=== PATIENT | female | born 2000 | race Two or more races ===

== ENCOUNTER 2021-12-07 22:20 | Emergency (ER) | payer MEDICAID, SELFPAY ==
[2021-12-07 22:29] VITALS: BP 118/70; PULSE 120; O2SAT 100
[2021-12-07 23:24] VITALS: BP 145/114; PULSE 78; RESP 20; TEMP 36.7; O2SAT 98; BMI 30.8
== END 2021-12-08 01:49 | disposition left against medical advice (07) ==
LOC: HO.ED 12-08 01:40
PROVIDERS: Emergency Provider Emergency Medicine
DX: R07.9 Chest pain, unspecified (principal); R10.9 Unspecified abdominal pain; Z98.51 Tubal ligation status
CPT/HCPCS: 99281

== ENCOUNTER 2022-03-23 15:23 | Emergency (ER) | payer MEDICAID, SELFPAY ==
[2022-03-23 15:42] VITALS: PULSE 103; RESP 16; O2SAT 97; BMI 23.0
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
--- NOTE | 2022-03-26 14:57 | MHC.CARE ---
Left voicemail for patient, we are aware that she left the ED prior to meeting with a clinician. Gave number for [facility] if she is in the community and in crisis as well as the CARE Team information if she would like information about treatment options or outpatient referrals.
== END 2022-03-23 16:18 | disposition left against medical advice (07) ==
PROVIDERS: Emergency Provider Emergency Medicine Emergency Medical Services
DX: F43.0 Acute stress reaction (principal); Z79.899 Other long term (current) drug therapy
CPT/HCPCS: 99282; 99283

== ENCOUNTER 2023-09-30 09:52 | Emergency (ER) | payer MEDICAID, OTHER, SELFPAY ==
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
[2023-09-30] MEDS: OLANZapine 10 MG VIAL 5 MG IM (10:30)
[2023-09-30] MEDS: diphenhydrAMINE HCL 50 MG/ML VIAL IM (10:30)
[2023-09-30] MEDS: LORazepam 2 MG/ML VIAL IM (10:30)
[2023-09-30 11:22] VITALS: RESP 18; BMI 24.6
--- NOTE | 2023-09-30 14:03 | PC.NURSE ---
provider asked this bond underwriter to wake patient to ask to obtain labs, t/w attempted asked times 2 patient grunted, letting a few minutes elapse before reattempt.
--- NOTE | 2023-09-30 15:35 | PC.NURSE ---
clients social science instructor from [facility] alexandra called and wanted an update t/w informed SW client was asleep and disposition couldnt be obtained as yet, advised to return phone call later.
--- NOTE | 2023-09-30 16:20 | PC.NURSE ---
made another attempt to wake client for meds, asked times two, client did move legs, unclear if client is selectively pretending to be asleep
--- NOTE | 2023-09-30 16:57 | PC.NURSE ---
late entry: supplement to restraint documentation, patient after being brought into pod was handcuffed to stretcher, provider came in and laid eye on patient and thereafter requested we attempt to let patient calm self without im medication. client was demanding phone i have the right to film what youre doing (security had handed phone to this insurance underwriter) patient remained agitated and focused on staff at nursing desk. patient threatened pod staff you cant stay here all the time, when you get out on the streets im coming back for you attempted to give client ten minutes to modify her behavior. 1005 got off stretcher. 1015 t/w began to draw up medications for IM's t/w came up to security and informed them i was presenting client with the option to take meds willingly. client stated that youre triggering my trauma and t/w suggested she hold security's hands while t/w administered. patient could not agree to take medications willingly, soon thereafter client received olanzapine, benadryl and ativan IM (VL)
[2023-09-30 19:47] LABS: MANUAL DIFF FLAG NO
[2023-09-30 19:55] LABS: Basophils Absolute Auto 0.1 X10*3/uL (0.0-0.2); Basophils Percent Auto 0.8 % (0-2); Eosinophils Absolute Auto 0.1 X10*3/uL (0.0-0.4); Eosinophils Percent Auto 1.1 % (0-4); Hematocrit 45.5 % (37.0-47.0); Hemoglobin 15.4 g/dl (12.0-16.0); Imm Gran Abs Auto 0.03 X10*3/uL (0.00-0.03); Imm Gran Pct Auto 0.2 % (0.0-0.4); Lymphocytes Absolute Auto 4.7 X10*3/uL (1.2-4.9); Lymphocytes Percent Auto 38.4 % (20-40); Mean Corpuscular HGB Conc 33.8 g/dl (31.0-35.0); Mean Corpuscular Hemoglobin 27.6 pg (27.0-33.0); Mean Corpuscular Volume 81.7 fL (80.0-98.0); Mean Platelet Volume 12.3 fL (9.4-12.3); Monocytes Absolute Auto 0.7 X10*3/uL (0.1-1.2); Monocytes Percent Auto 5.8 % (2-11); Neutrophils Absolute Auto 6.5 x10*3/uL (2.0-8.3); Neutrophils Percent Auto 53.7 % (45-73); Platelet Count 189 X10*3/uL (160-400); Red Blood Count 5.57 X10*6/uL (4.20-5.50); Red Cell Distribution Width 12.5 % (11.0-16.0); White Blood Count 12.1 X10*3/uL (4.8-10.8)
[2023-09-30 19:56] LABS: Amphetamine Screen Urine Not Detected (Not Detect); Barbiturates, Urine Not Detected (Not Detect); Benzodiazepines Screen Urine Not Detected (Not Detect); Cannabinoid Screen Urine POSITIVE (Not Detect); Cocaine Screen Urine Not Detected (Not Detect); Fentanyl, urine Not Detected (Not Detect); Opiate Screen Urine Not Detected (Not Detect); Phencyclidine Screen Urine Not Detected (Not Detect)
[2023-09-30 20:12] LABS: Alanine Aminotransferase 12 U/L (0-31); Albumin Level 4.9 g/dL (3.5-5.0); Alkaline Phosphatase 61 U/L (39-117); Anion Gap 22 (12-20); Aspartate Amino Transferase 37 U/L (5-31); Bilirubin Total 0.6 mg/dL (0.0-1.0); Blood Urea Nitrogen 8 mg/dL (9-16); Calcium 10.4 mg/dL (8.4-10.2); Carbon Dioxide 15 mmol/L (22-29); Chloride 107 mmol/L (96-108); Creatinine Clr Calc Pharmacy 92.7; Estimated Glomerular Filt Rate > 60; Ethanol < 10 mg/dL; Glucose Random 96 mg/dL (60-115); HCG Quantitative < 2 mIU/mL; Potassium 4.3 mmol/L (3.3-5.1); Sodium 140 mmol/L (135-145); Total Protein 8.8 g/dL (6.5-8.0)
[2023-09-30] MEDS: OLANZapine 10 MG TABLET 15 MG PO (22:53)
[2023-09-30] MEDS: LORazepam 1 MG TABLET 2 MG PO (22:53)
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
[2023-10-01 06:13] VITALS: RESP 16
--- NOTE | 2023-10-01 07:04 | PC.NURSE ---
Resumed care of patient, she is currently sleeping at this time. Reported to have a good night night by night nurse after PO medication given. Awaiting dispo plan at this time. 15 minute checks maintained.
--- NOTE | 2023-10-01 11:16 | MHC.CARE ---
CARE Team received a call from Pts DCF/CHD worker Becka Wilson [phone] looking for an update. She reports Pt historically has explosive episodes and difficultly self regulating under distress. She report all of Pts children were removed in an emergency response yesterday and placed in foster care. She reported Pt had making passive SI statements recently. Pt has services through [facility]. She requested to be update with plan of care.
--- NOTE | 2023-10-01 14:57 | MHC.CARE ---
CARE Team follows up with pt this afternoon. Pt appears calm and cooperative at this time, asking for discharge. She denies SI/HI and states that she wants to d/c to work with her N providers and with DCF on being reunified with her kids. She is future oriented, and declines referral to [facility]. She reports that if she experiences SI she will reach out to her therapist. She has medications at home and plans on taking them as prescribed. She declined referral to PHP last night, and is not open to discussing treatment options today. CARE Team to call DCF worker and notify them of d/c. Plan discussed with Dr. Hernandez, ED provider.
--- NOTE | 2023-10-01 15:35 | PC.NURSE ---
discharged by previous RN bartolome on arrival to unit. pt left oriented denying SI/HI with all belongings confirmed on belongings check by staff. no resp distress. +CMS. walking well out with security to waiting room.
== END 2023-10-01 15:52 | disposition home or self-care (01) ==
PROVIDERS: Student in an Organized Health Care Education/Training Program; Emergency Provider Internal Medicine
DX: R45.851 Suicidal ideations (principal); R45.6 Violent behavior; Z63.8 Other specified problems related to primary support group; Z79.899 Other long term (current) drug therapy
CPT/HCPCS: 36415; 80053; 80307; 84702; 85025; 96372; 99284; 99285; J1200; J2060; J2359; S9485

== ENCOUNTER 2023-10-21 10:26 | Outpatient (REF) | payer MEDICAID, SELFPAY ==
[2023-10-21 11:15] LABS: MANUAL DIFF FLAG NO
[2023-10-21 11:45] LABS: Basophils Absolute Auto 0.1 X10*3/uL (0.0-0.2); Basophils Percent Auto 1.4 % (0-2); Eosinophils Absolute Auto 0.1 X10*3/uL (0.0-0.4); Eosinophils Percent Auto 2.1 % (0-4); Hematocrit 43.3 % (37.0-47.0); Hemoglobin 14.3 g/dl (12.0-16.0); Imm Gran Abs Auto 0.01 X10*3/uL (0.00-0.03); Imm Gran Pct Auto 0.2 % (0.0-0.4); Lymphocytes Absolute Auto 2.2 X10*3/uL (1.2-4.9); Lymphocytes Percent Auto 35.6 % (20-40); Mean Corpuscular Hemoglobin 27.4 pg (27.0-33.0); Mean Platelet Volume 12.5 fL (9.4-12.3); Monocytes Absolute Auto 0.4 X10*3/uL (0.1-1.2); Monocytes Percent Auto 6.4 % (2-11); Neutrophils Absolute Auto 3.4 x10*3/uL (2.0-8.3); Neutrophils Percent Auto 54.3 % (45-73); Platelet Count 187 X10*3/uL (160-400); Red Blood Count 5.22 X10*6/uL (4.20-5.50); Red Cell Distribution Width 12.7 % (11.0-16.0); White Blood Count 6.3 X10*3/uL (4.8-10.8)
[2023-10-21 12:19] LABS: Alanine Aminotransferase 7 U/L (0-31); Albumin Level 4.6 g/dL (3.5-5.0); Alkaline Phosphatase 59 U/L (39-117); Anion Gap 11 (12-20); Aspartate Amino Transferase 14 U/L (5-31); Bilirubin Total 0.5 mg/dL (0.0-1.0); Blood Urea Nitrogen 7 mg/dL (9-16); Calcium 10.1 mg/dL (8.4-10.2); Carbon Dioxide 24 mmol/L (22-29); Chloride 107 mmol/L (96-108); Estimated Glomerular Filt Rate > 60; Glucose Random 90 mg/dL (60-115); Potassium 4.2 mmol/L (3.3-5.1); Sodium 138 mmol/L (135-145); TSH reflex Free T4 1.31 uIU/mL (0.32-4.0); Total Protein 7.9 g/dL (6.5-8.0)
[2023-10-23 04:44] LABS: Prolactin Undiluted 3.5 ng/mL
== END 2023-10-21 10:27 | disposition home or self-care (01) ==
LOC: HO.HHCL 10:26
PROVIDERS: Visit Provider Family Medicine
DX: N64.3 Galactorrhea not associated with childbirth (principal); N92.6 Irregular menstruation, unspecified
CPT/HCPCS: 36415; 80053; 84146; 84443; 85025

== ENCOUNTER → 2024-06-22 13:00 | Outpatient (BNV) | payer MEDICAID, SELFPAY | PROVIDERS: PCP Internal Medicine Geriatric Medicine; Visit Provider Radiology Diagnostic Radiology | DX: N64.4 Mastodynia (principal) | CPT/HCPCS: 76642 ==

== ENCOUNTER 2024-06-22 14:04 | Outpatient (REF) | payer MEDICAID, SELFPAY ==
--- NOTE | ~2024-06-22 | US_ITS ---
EXAMINATION: US DIAGNOSTIC ULTRASOUND BREAST, BILATERAL CLINICAL INFORMATION: 23-year-old female, bilateral all over breast pain x years; left greenish nipple discharge, sometimes bloody , x years. COMPARISON: None available. TECHNIQUE: Ultrasound of both breasts was performed with real-time epstein scale imaging and color Doppler. Attention was given to all 4 quadrants of both breasts, and the left retroareolar region. FINDINGS: There is no focal suspicious finding. There is no solid mass, cystic abnormality, architectural abnormality, duct ectasia, or edema in the soft tissue planes. There is no correlate to bilateral breast pain, or correlate in the left retroareolar region to explain episodic discharge. Recommend clinical management. Results are discussed with the patient at time of visit. US/US breast BI limited mamm only IMPRESSION: No findings identified in either breast suspicious for malignancy. No sonographic correlate to years of bilateral all over breast pain, and no correlate to years of the left nipple discharge. Recommend clinical management and follow-up. ASSESSMENT: BI-RADS 1: Negative RECOMMENDATION: 1. Patient should be managed based on the clinical impression.
== END 2024-06-22 14:05 | disposition home or self-care (01) ==
LOC: HO.MAMMO 14:04
PROVIDERS: PCP Internal Medicine Geriatric Medicine; Visit Provider Internal Medicine Geriatric Medicine
DX: N64.4 Mastodynia (principal); N64.52 Nipple discharge
CPT/HCPCS: 76642

== ENCOUNTER 2024-09-07 18:54 | Outpatient (REF) | payer MEDICAID, SELFPAY | END 2024-09-07 18:55 | disposition home or self-care (01) | LOC: HO.HHCLNP 18:54 | PROVIDERS: Visit Provider Internal Medicine | DX: J02.9 Acute pharyngitis, unspecified (principal) | CPT/HCPCS: 87070 ==

== ENCOUNTER 2025-02-26 13:11 | Outpatient (REF) | payer MEDICAID, SELFPAY ==
--- NOTE | ~2025-02-26 | XR_ITS ---
EXAMINATION: XR CHEST 2 VIEWS HISTORY: persistent cough and blood tinged sputum post Covid COMPARISON: There are no prior studies for comparison. FINDINGS: PA and lateral views of the chest are submitted. The lungs are expanded and clear. There is no pleural effusion, pneumothorax, or pulmonary vascular congestion. The heart is normal in size. The bones are intact. XR/XR chest 2V IMPRESSION: Normal examination of the chest. Electronically signed by: Kirby Miles MD 02/26/2025 02:03 PM EDT
[2025-02-26 16:37] LABS: Hematocrit 44.3 % (37.0-47.0); Hemoglobin 14.6 g/dl (12.0-16.0); Mean Corpuscular Hemoglobin 28.1 pg (27.0-33.0); Mean Corpuscular Volume 85.4 fL (80.0-98.0); Mean Platelet Volume 12.8 fL (9.4-12.3); Platelet Count 170 X10*3/uL (160-400); Red Blood Count 5.19 X10*6/uL (4.20-5.50); Red Cell Distribution Width 12.6 % (11.0-16.0); White Blood Count 6.2 X10*3/uL (4.8-10.8)
[2025-02-26 17:50] LABS: Alanine Aminotransferase 12 U/L (0-31); Albumin Level 4.7 g/dL (3.5-5.0); Alkaline Phosphatase 51 U/L (39-117); Anion Gap 10 (12-20); Aspartate Amino Transferase 18 U/L (5-31); Bilirubin Total 0.6 mg/dL (0.0-1.0); Blood Urea Nitrogen 9 mg/dL (9-16); Calcium 9.9 mg/dL (8.4-10.2); Carbon Dioxide 28 mmol/L (22-29); Chloride 107 mmol/L (96-108); Estimated Glomerular Filt Rate > 60; HCG Quantitative < 2 mIU/mL; Potassium 3.9 mmol/L (3.3-5.1); Sodium 141 mmol/L (135-145); Total Protein 7.8 g/dL (6.5-8.0)
[2025-02-26 18:11] LABS: Glucose Random 57 mg/dL (60-115)
[2025-02-27 03:52] LABS: HBS Num1 84.54 mIU/mL (0-7.99); HBsAGNum1 0.35 S/CO (0.00-0.99); HIV AB/AG Nonreactive (Nonreactive); HIV Num 1 0.11 S/CO (0.00-0.99); Hepatitis B Surface Antigen Negative (Negative); ~HepC Num1 0.21 S/CO (0.00-0.79); ~Hepatitis B Surface Antibody REACTIVE (Nonreactive); ~Hepatitis C Antibody Nonreactive (Nonreactive)
[2025-02-27 05:18] LABS: CT PCR NOT DETECTED (Not Detect.); NG PCR NOT DETECTED (Not Detect.)
[2025-03-01 19:29] LABS: TS Negative Control Passed; TS Panel A 0; TS Panel B 0; TS Positive Control Passed; TSpotTB Negative (Negative)
== END 2025-02-26 13:12 | disposition home or self-care (01) ==
LOC: HO.HHCL 13:11
PROVIDERS: Visit Provider Nurse Practitioner Family
DX: Z00.00 Encounter for general adult medical examination without abnormal findings (principal); R05.1 Acute cough; R11.2 Nausea with vomiting, unspecified
CPT/HCPCS: 71046; 80053; 84702; 85027; 86481; 86706; 86803; 87340; 87389; 87491; 87591

== ENCOUNTER → 2025-02-26 13:38 | Outpatient (BNV) | payer MEDICAID, SELFPAY | PROVIDERS: Visit Provider Radiology Diagnostic Radiology | DX: R05.9 Cough, unspecified (principal) | CPT/HCPCS: 71046 ==

== ENCOUNTER 2025-07-20 17:51 | Emergency (ER) | payer MEDICAID, SELFPAY ==
--- NOTE | ~2025-07-20 | XR_ITS ---
CLINICAL HISTORY: lac to left thumb ?retained glass 3 view left 1st digit Comparison: None Findings: Soft tissue swelling of the 1st digit noted. No displaced fracture or dislocation of the 1st digit. No retained metallic foreign body. Multiple foreign bodies vein of the dens or radiopaque. IMPRESSION: 1. No acute fracture or dislocation. 2. No dense or metallic foreign body by radiographs This document has been electronically signed by: Owen Ortega MD on 07/20/2025 19:31:18
--- NOTE | 2025-07-20 18:21 | ED.GENADULT ---
HPI - General Adult General Chief complaint: Wound/Laceration Stated complaint: glass in L hand, bleeding Time Seen by Provider: 07/20/25 23:01 History of Present Illness ED Provider: Palmer BYERS narrative: The patient is a 24-year-old female who accidentally injured herself when she was throwing away some broken glass. She sustained a laceration to the dorsum of her left thumb. She says that she has been washing dishes when she accidentally broke a glass. She was then trying to throughout the broken pieces of glass when she accidentally cut herself with a broken glass on the dorsum of the thumb. She does not know when she last had a tetanus shot. Related Data Home Medications ?Medication ?Instructions ?Recorded ?Confirmed clonidine HCl 0.1 mg tablet 0.1 mg PO BID 09/30/23 09/30/23 olanzapine 15 mg tablet 15 mg PO BEDTIME 09/30/23 09/30/23 oxcarbazepine 300 mg tablet 300 mg PO BID 09/30/23 09/30/23 Previous Rx's ?Medication ?Instructions ?Recorded cephalexin 500 mg capsule 500 mg PO TID 2 days #6 caps 07/20/25 Allergies Allergy/AdvReac Type Severity Reaction Status Date / Time No Known Allergies (No Known Allergy Verified 07/20/25 18:23 Allergies*) Review of Systems Review of Systems: Yes all other systems are reviewed and are negative [facility] Social History Social History Advance Directives: No Advance Directives Information Provided: No Do you have a plan to hurt others: No Plan Physical Exam ED Vital Signs: Vital Signs - 24 hr 07/20/25 18:22 07/20/25 22:56 07/20/25 23:59 Temperature 98 F 98.3 F 98.3 F Pulse Rate 69 70 70 Respiratory Rate 18 20 20 Blood Pressure 111/66 105/61 105/61 Pulse Oximetry 98 100 100 Oxygen Delivery Method Room Air Room Air Room Air BMI result Body Mass Index 24.3 Const Other: The patient is awake, alert, pleasant, cooperative. She does not appear in acute distress. HENMT Other: The face is symmetrical. ?Mucous membranes moist. Eyes General: appearance normal, both eyes and all related structures Neck Neck: Yes normal visual inspection and Yes full ROM Resp Effort & Inspection: normal respiratory effort Skin Other: The patient has a 1.5 cm laceration to the skin on the dorsum of the left thumb near the creases of the IP joint. Skin edges are quite sharp. Neuro Other: The patient is awake and alert with a normal mental status. She has normal sensation of the distal left thumb. Extrem Other: The patient has a laceration to the skin of the dorsum of the left thumb in the region of the creases of the IP joint. There was no soft tissue swelling. She has a normal function of the joint of the left thumb and can fully extend the left thumb. Thumb is neurovascularly intact with intact tendon function. Course Course Course Narrative: This is a Rapid Medical Examination (RME) performed by Leigha Chandler PA-C in triage. Full HPI, ROS, assessment and treatment plan per primary provider in the Main ED. 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 believes there is still glass in the lac. tdap not UTD. Plan: lac repair, XR Medications Administered Discontinued Medications Generic Name Dose Route Start Last Admin Trade Name Ce PRN Reason Stop Dose Admin Bacitracin 1 appl 07/20/25 23:37 07/20/25 23:50 Bacitracin Oint 0.9 Gm Packet TOPICAL 07/20/25 23:38 1 appl ONCE ONE Administration Protocol Cephalexin HCl 1,000 mg 07/20/25 23:37 07/20/25 23:50 Cephalexin 500 Mg Capsule PO 07/20/25 23:38 1,000 mg ONCE ONE Administration Diphtheria/Tetanus/Acell Pertussis 0.5 ml 07/20/25 23:05 07/20/25 23:14 Diphth,Pertus(Acell),Tet Adult 0.5 Ml Syringe IM 07/20/25 23:06 0.5 ml .ONCE ONE Administration Procedures Laceration Laceration 1: Site: hand (Dorsum of left thumb) Side (If applicable): left Size (cm): 1.5 Description: linear Depth: simple, single layer Local Anesthetic: lidocaine 1% Amount of anesthesia used (mL): 3 Pre-repair: wound explored and irrigated extensively Skin layer closed with: nylon Size (cm): 4-0 Number of sutures: 2 Technique: simple, interrupted Medical Decision Making Medical Decision Making MDM Narrative: The patient is a 24-year-old female who is generally in good health who has a laceration to the dorsum of the left thumb in the region of the IP joint of the thumb. This was caused by glass. An x-ray shows no definite radiopaque foreign body. The wound is near the IP joint of the thumb but I think it is primarily located just proximal to the IP joint dorsally. The wound was anesthetized with lidocaine and explored after applying a finger tourniquet to the thumb to attempt to achieve a bloodless field. The laceration is not very long and it was difficult to open the wound significantly for good visualization but I was not able to visualize any foreign matter in the wound and I did not palpate any foreign matter with forceps on exploration. My overall impression was that the wound did not have any foreign matter in it. Additionally I did not feel that the wound was likely violating the joint capsule of the IP joint. The wound was copiously irrigated with normal saline. The wound was closed with 2 simple interrupted stitches using 4-0 nylon. Good wound edge approximation was achieved. The patient tolerated the procedure well. The patient was updated on her tetanus. I explained to the patient that I had not found any foreign material in the wound. I also explained that I has been concerned that the wound is near the joint capsule of the IP joint of the thumb but my suspicion for a joint capsule violation is low. The patient was started on prophylactic course of cephalexin. Stitches should be removed in 10 days. If she develops any concern about infection she should return to the emergency room for evaluation. She was given a work note for the next 2 days. She works as a dental respiratory assistant. Discharge Plan Discharge Clinical Impression: Laceration of left thumb Patient Disposition: Home, Self-Care Instructions: Laceration (ED) Additional Instructions: Please contact your regular doctor's office tomorrow morning to arrange a follow up appointment in approximately 10 days for suture removal. Also tomorrow morning, please grain picker your antibiotics and take the prescribed antibiotic 3 times a day for 2 days. Please also purchase [id number] bacitracin (a topical antibiotic) and apply small amount to the wound with Band-Aid changes for the 1st 3 days and also before taking a shower. After 3 days you may stop applying the topical antibiotic. I would recommend not working as a dental respiratory assistant the next 2 days to allow the wound to fully seal itself. After 2 days I think you may work as long as you were wearing gloves. If at any point you have concerns about the possibility of an infection, if you have any redness or drainage or worsening pain, please return to the emergency room for re-evaluation. Prescriptions: New cephalexin 500 mg capsule 500 mg PO TID 2 Days Qty: 6 0RF No Action clonidine HCl 0.1 mg tablet 0.1 mg PO BID oxcarbazepine 300 mg tablet 300 mg PO BID olanzapine 15 mg tablet 15 mg PO BEDTIME Referrals: Name,MD Laurent [Primary Care Provider, Internal Medicine] Stand Alone Forms: Work/School Release Interventions: ED Discharge Assessment Last Done: 07/20/25 23:59 Discharge Date/Time: 07/20/25 23:59 Print Language: Malawian
[2025-07-20 18:22] VITALS: BP 111/66; PULSE 69; RESP 18; TEMP 36.6; O2SAT 98; BMI 24.3
[2025-07-20 22:56] VITALS: BP 105/61; PULSE 70; RESP 20; TEMP 36.8; O2SAT 100
[2025-07-20] MEDS: Diphth,Pertus(ACell),Tet Adult 0.5 ML SYRINGE IM (23:14)
[2025-07-20 23:59] VITALS: BP 105/61; PULSE 70; RESP 20; TEMP 36.8; O2SAT 100
== END 2025-07-20 23:59 | disposition home or self-care (01) ==
PROVIDERS: Emergency Provider Emergency Medicine; PCP Internal Medicine Geriatric Medicine
DX: S61.012A Laceration without foreign body of left thumb without damage to nail, initial encounter (principal); W25.XXXA Contact with sharp glass, initial encounter; Y93.G1 Activity, food preparation and clean up; Y92.9 Unspecified place or not applicable; Y99.9 Unspecified external cause status; Z23 Encounter for immunization
CPT/HCPCS: 12001; 73140; 90471; 90715; 99283; 99284

== ENCOUNTER → 2025-07-20 18:23 | Outpatient (BNV) | payer MEDICAID, SELFPAY | PROVIDERS: PCP Internal Medicine Geriatric Medicine; Visit Provider Radiology Neuroradiology | DX: S61.012A Laceration without foreign body of left thumb without damage to nail, initial encounter (principal) | CPT/HCPCS: 73140 ==

== ENCOUNTER 2025-08-27 08:00 | Emergency (ER) | payer MEDICAID, SELFPAY ==
--- NOTE | ~2025-08-27 | XR_ITS ---
EXAMINATION: XR HAND 3 OR MORE VIEWS RIGHT HISTORY: r/o FB rt hand/rt middle finger COMPARISON: There are no prior studies available for comparison. FINDINGS: Three views of the right hand are submitted. Osseous mineralization is normal. There is no fracture or dislocation. The joint spaces are preserved. The soft tissues are unremarkable. No radiopaque foreign body is identified. XR/XR hand RT min 3V IMPRESSION: Unremarkable examination of the right hand. No radiopaque foreign body is identified. Electronically signed by: Kirby Miles MD 08/27/2025 08:37 AM EDT
[2025-08-27 08:11] VITALS: BP 107/57; PULSE 82; RESP 18; TEMP 36.8; O2SAT 98; BMI 23.0
--- OUTSIDE RECORDS SUMMARY | 2025-08-27 08:31 | XMS_ITS | Encounter Summary ---
Author Organization [employer] Address [address] [place] [address] [address] [place] [address] Care Team Providers Care Gritting Machine Operator Name Role Phone Name, Laurent DUPREE Primary Care Provider [phone] Reason for Visit * Reason Onset Date Comments triage 04/26/2023 Encounter Details Date Type Department Care Team ([facility] st Contact Info) Description 04/26/2023 Telephone [facility] MEDICINE [address] [place] [address] Name, MD Laurent [address] [place] [address] triage Social History Tobacco Use Types Packs/Day Years Used Date Smoking Tobacco: Never Assessed Comments Unknown Sex and Gender Information Value Date Recorded Sex Assigned at Female 10/01/2022 10:34 AM EDT Legal Sex Female 10:34 AM EDT Gender Identity Female 10/01/2022 10:34 AM EDT Sexual Orientation Straight 10/01/2022 10 :34 AM EDT documented as of this encounter Miscellaneous Notes * Telephone Encounter - Eber Warner - 04/26/2023 10:57 AM EDT Symptom: Knee Pain - Not From Injury Outcome: Schedule an urgent appointment (within 1 hour) or talk to a nurse or provider soon Reason: Severe pain now The caller accepted this outcome documented in this encounter Plan of Treatment Not on file documented as of this encounter Visit Diagnoses Not on filedocumented in this encounter Care Teams Gritting Machine Operator Relationship Specialty Start Date End Date Name, MD Laurent [address] [place] [address] PCP - General Family Medicine 10/28/18 documented as of this encounter
--- OUTSIDE RECORDS SUMMARY | 2025-08-27 08:31 | XMS_ITS | Clinical Summary ---
Author Organization [facility] Address [address] [place] [address] Care Team Providers Care Hand Hardener Name Role Phone Unavailable Primary Care Provider Unavailabl e Social History Tobacco Use Types Packs/Day Years Used Date Smoking Tobacco: Never Assessed Comments Unknown Sex and Gender Information Value Date Recorded Sex Assigned at Not on file Legal Sex Female 12:37 PM EST Gender Identity Not on file Sexual Orientation Not on file Plan of Treatment Health Maintenance Due Date Last Done Comments HPV Vaccines (1 - 3-dose series) 2013 DTaP,Tdap,and Td Vaccines (1 - Tdap) 2017 Hepatitis B Vaccines (1 of 3 - 19+ 3-dose series) 2017 Cervical Cancer Screening: P ap Smear 2019 HIV Screening 12/31/2023 Hepatitis C Screening 12/31/2023 Social Influencers of Health Screening 12/31/2023 Depression Screening 12/02/2024 COVID-19 Vaccine (2023-2 5 season) 2025 Influenza Vaccine (#1) 2025 HIB Vaccines Aged Out No longer eligi ble based on patient's age to complete this topic Hepatitis A Vaccines Aged Out No long er eligible based on patient's age to complete this topic IPV Vaccines Aged Out No longer eligi ble based on patient's age to complete this topic MMR Vaccines Aged Out No longer eligi ble based on patient's age to complete this topic Meningococcal ACWY Vaccine Aged Out N o longer eligible based on patient's age to complete this topic Meningococcal B Vaccine Aged Out No l onger eligible based on patient's age to complete this topic Pneumococcal Vaccine: Pediat rics (0 to 5 Years) and At-Risk Patients (6 to 49 Years) Aged Out No longer eligible b ased on patient's age to complete this topic RSV Immunization Patients Un chemo 20 months Aged Out No longer eligible b ased on patient's age to complete this topic Varicella Vaccines Aged Out No longer eligible based on patient's age to complete this topic
--- OUTSIDE RECORDS SUMMARY | 2025-08-27 08:31 | XMS_ITS | Clinical Summary ---
Author Organization [facility] Address [address] [facility] [address] [place] [phone] Phone Care Team Providers Care Timekeeping Supervisor Name Role Phone Pcp, Unknown Primary Care Provider Unavailabl e Allergies No known active allergies Medications No known medications Social History Tobacco Use Types Packs/Day Years Used Date Smoking Tobacco: Never Smokeless Tobacco: Never Tobacco Cessation:Counseling Given: Not Answered Alcohol Use Standard Drinks/Week Comments Not Currently 0 (1 standard drink = 0.6 oz pur e alcohol) Education Answer Date Recorded Are you interested in more education? Not on kalyn e 01/25/2025 Are you concerned about learning? Not on file 01/25/2025 No 01/25/2025 No 01/25/2025 Digital Access Answer Date Recorded No 01/25/2025 No 01/25/2025 Reliable internet access at home? Not on file 01/25/2025 Device with a working camera? Not on file Intimate Partner Violence Answer Date R ecorded Are you denied basic needs s uch as food, clothing, or medical care? No 01/25/2025 In the past 12 months have y ou been in a relationship with a person who hurts, threatens, or tries to control you? No 01/25/2025 Are you denied basic needs s uch as food, clothing, or medical care? No 01/25/2025 In the past 12 months have y ou been in a relationship with a person who hurts, threatens, or tries to control you? No 01/25/2025 Comments No Sex and Gender Information Value Date Recorded Sex Assigned at Female 01/25/2025 12:05 PM EST Legal Sex Female 11:19 AM EST Gender Identity Female 01/25/2025 12:05 PM EST Sexual Orientation Not on file Last Filed Vital Signs Vital Sign Reading Time Taken Comments Blood Pressure 116/75 01/25/2025 2:10 PM EST Pulse 92 01/25/2025 2:10 PM EST Temperature 37.2 C (99 F) 01/25/2025 2:10 PM EST Respiratory Rate 18 01/25/2025 2:10 PM EST Oxygen Saturation 97% 01/25/2025 2:10 PM EST Inhaled Oxygen Concentration - - Weight 61.5 kg (135 lb 8 oz) 01/25/2025 12:04 PM EST Height 160 cm (5' 3 ) 01/25/2025 12:04 PM EST Body Mass Index 01/25/2025 12:04 PM EST Plan of Treatment Health Maintenance Due Date Last Done Comments DEPRESSION SCREENING 2010 HPV VACCINES (1 - 3-dose series) 2013 HEPATITIS C SCREENING 2016 HIV ONE-TIME SCREENING (18-65 YEARS) 2016 PAP SMEAR 2019 INFLUENZA VACCINE (#1) 2025 COVID-19 VACCINE ( season) 2025 Adult Td,Tdap Booster 06/07/2031 06/07/2021 , 09/18/2019, 03/24/2016, Additional history exists SMOKING STATUS SCREENING (Once After 26 Yrs) Completed 01/25/2025 HEPATITIS A VACCINES Aged Out No long er eligible based on patient's age to complete this topic HIB VACCINES Aged Out No longer eligi ble based on patient's age to complete this topic MENINGOCOCCAL VACCINES (ACWY) Aged Out No longer eligible based on patient's age to complete this topic MENINGOCOCCAL VACCINES (B) Aged Out N o longer eligible based on patient's age to complete this topic PNEUMOCOCCAL VACCINES (0-49 years) Aged Out No longer eligible based on patient's age to complete this topic Medical Devices Not on file Insurance [facility] C3 ACO C3 ACO C3 ACO C3 ACO [facility] C3 ACO [facility] C3 ACO Care Teams Timekeeping Supervisor Relationship Specialty Start Date End Date Pcp, Unknown PCP - General 01/25/25 Additional Source Comments The information contained in this document represents components of the legal health record. It is not the complete legal health record.[facility]
--- OUTSIDE RECORDS SUMMARY | 2025-08-27 08:31 | XMS_ITS | Clinical Summary ---
Author Organization [facility] [address] [facility] Address [address] [place] [phone] Phone Care Team Providers Care Wellness Nurse Name Role Phone No, Pcp (Do Not Change Name) Primary Care Provid er Unavailable Medications senna-docusate (SENNA-PLUS) 8.6-50 mg tablet Take 1 tablet by mouth 2 (two) times daily.. 14 tablet 1 8 Active oxyCODONE (ROXICODONE) 5 MG Immediate Release tablet Take 1-2 every 4-6 hours as needed 60 tablet 8 Active Miscellaneous Medical Supply Misc Rolling Walker; Use as directed.Dx: left femur fracture with operative repair; 99 months 1 each 8 Active Active Problems Problem Noted Date Diagnosed Date Fracture of left femur 08/09/2018 Closed fracture of left femu r, unspecified fracture morphology, unspecified portion of femur, initial encounter 08/09/2018 Social History Tobacco Use Types Packs/Day Years Used Date Smoking Tobacco: Never Assessed Comments Unknown Sex and Gender Information Value Date Recorded Sex Assigned at Not on file Legal Sex Female 2:37 AM EDT Gender Identity Not on file Sexual Orientation Not on file Last Filed Vital Signs Vital Sign Reading Time Taken Comments Blood Pressure 115/82 08/12/2018 9:56 AM EDT Pulse 90 08/12/2018 9:56 AM EDT Temperature 37.1 C (98.8 F) 08/12/2018 9:36 AM EDT Respiratory Rate 16 08/28/2018 11:25 AM EDT Oxygen Saturation 99% 08/12/2018 9:56 AM EDT Inhaled Oxygen Concentration - - Weight 54.4 kg (120 lb) 08/28/2018 11:25 AM EDT Height 160 cm (5' 3 ) 08/28/2018 11:25 AM EDT Body Mass Index 21.26 08/28/2018 11:25 AM EDT Plan of Treatment Health Maintenance Due Date Last Done Comments MMR Vaccines (1 of 1 - Stand mikal series) 1999 DTaP/TDaP Vaccines (1 - Tdap) 2005 HIV screening 2011 Varicella Vaccines (1 of 2 - 13+ 2-dose series) 2011 HPV vaccine series (1 - 3-do se series) 2013 Hepatitis C screening 2016 Hepatitis B vaccine series ( 1 of 3 - 19+ 3-dose series) 2017 Tetanus adult (Td q 10,TDAP once) 2018 Cervical cancer screening 2019 Influenza vaccine 07/02/2025 Covid-19 vaccine series ( - season) 2025 RSV Immunization (1 - 1-dose 75+ series) 2073 HIB Vaccines Aged Out No longer eligi [...] patient's age to complete this topic Meningococcal Vaccine Aged Out No patricia breanna eligible based on patient's age to complete this topic Pneumococcal Vaccine (2 - 49 years) Aged Out No longer eligible based on patient's age to complete this topic Rotavirus Vaccines Aged Out No longer eligible based on patient's age to complete this topic Medical Devices Implanted Type Area Service Unit Operator Device Identifier Shelf Expiration Date Model / Serial / Lot Nail Fem [id number] Peggy Rtrgd - [id number] Implanted:08/02 by Brent Murdock MD at [address] (Quantity not on file) Other-im plant Left: Femur J J ([id number]) 01/29/2027 [id number] S / / [id number] Screw Melida 5x48mm F Im Nl - [id number] Implanted:08/02 by Brent Murdock MD at [address] (Quantity not on file) Other-im plant Left: Femur J J (PAOLA) [id number] / / Screw Melida 5x30mm F Im Nl - [id number] Implanted:08/02 by Brent Murdock MD at [address] (Quantity not on file) Other-im plant Left: Femur J J (PAOLA) [id number] / / Screw Melida 5x44mm F Im Nl - [id number] Implanted:08/02 by Brent Murdock MD at [address] (Quantity not on file) Other-im plant Left: Femur J J (PAOLA) 04.005.534 / / Screw Melida 5x42mm F Im Nl - [id number] Implanted:08/02 by Brent Murdock MD at [address] (Quantity not on file) Other-im plant Left: Femur J J (PAOLA) [id number] / / Insurance [id number] MEDICAID [id number] MEDICAID [id number] MEDICAID [id number] MEDICAID [id number] MEDICAID Advance Directives * Full ACLS (Latest Code Status on File) Date Activated Date Inactivated Comments 08/09/2018 9:08 AM 08/12/2018 6:28 PM Care Teams Wellness Nurse Relationship Specialty Start Date End Date No, Pcp (Do Not Change Name) PCP - General 08/28/18
--- OUTSIDE RECORDS SUMMARY | 2025-08-27 08:31 | XMS_ITS | Encounter Summary ---
Author Organization [facility] Address [address] [facility] [address] [place] [address] Care Team Providers Care Specimen Preparation Assistant Name Role Phone Name, Laurent DUPREE Primary Care Provider [phone] Reason for Visit * Reason Onset Date Comments Nurse Triage 02/28/2024 Encounter Details Date Type Department Care Team ([facility] st Contact Info) Description 02/28/2024 Telephone [facility] MEDICINE [address] [place] [address] Name, MD Laurent [address] [place] [address] Nurse Triage Social History Tobacco Use Types Packs/Day Years Used Date Smoking Tobacco: Never Passive Smoke Exposure: Never Smokeless Tobacco: Never Comments Unknown Sex and Gender Information Value Date Recorded Sex Assigned at Female 10/01/2022 10:34 AM EDT Legal Sex Female 10:34 AM EDT Gender Identity Female 10/01/2022 10:34 AM EDT Sexual Orientation Straight 10/01/2022 10 :34 AM EDT documented as of this encounter Miscellaneous Notes * Telephone Encounter - Alice Turner RN - 02/28/2024 9:57 AM EDT Triage call Pt reports two areas of concern. Pt reports chest discomfort which comes and goes, center area of chest, above left breast. Pt reports anxiety at times which makes this worse. Pt reports when able to work through anxiety the pain goes away. Pt also reports is a smoker and is spitting up brownish sputum in the mornings. No difficulty breathing, neg for cough or fever. Pt reports getting some dizziness when gets up from sitting quickly. Pt also reports a concern about right breast nipple discharge. Pt reports last seen a couple days ago but, has been occurring for more than a yearnow. Pt reports when squeezing the breast discharge appears which is yellowish -greenish, small amount. Pt is requesting to be seen by provider. Pt is working till 5pm most days. Pt is unable to [facility] today. Apt with DR. Acuña 03/03/24 @ 1130am. Pt agrees with disposition and home care reviewed. Insurance is verified as active prior to booking. Multiple (2) protocols were used on this call. Disposition for Call: See in Office or Video Visit within 3 Days Protocol Used: Chest Pain (Adult) Protocol-Based Disposition: See in Office or Video Visit Today Override (Final) Disposition: See in Office or Video Visit within 3 Days Override Reason: Other Video visit not offered Positive Triage Questions: * All other patients with chest pain (Exception: Fleeting chest pain lasting a few seconds.) * Patient wants to be seen * All higher-acuity triage questions were negative Care Advice Discussed: * Humidifier * Avoid Tobacco Smoke * Reasons To Call Back - Chest pain increases in frequency, duration or severity - Chest pain lasts over 5 minutes - Chest pains persist over 3 days - Difficulty breathing or unusual sweating occurs - Fever over 100.4 F (38.0 C) - You become worse Protocol Used: Breast Symptoms (Adult) Protocol-Based Disposition: See in Office or Video Visit within 3 Days Positive Triage Question: * Nipple discharge and bloody * All higher-acuity triage questions were negative Care Advice Discussed: * Reasons To Call Back - You feel a lump - Nipple discharge occurs - Change in appearance of breast - You have more questions - You become worse * Telephone Encounter - Demetris Perez - 02/28/2024 9:00 AM EDT Symptom: Chest Pain - Adult Outcome: Schedule an urgent appointment (within 1 hour) or talk to a nurse or provider soon Reason: Caller denied all higher acuity questions The caller accepted this outcome documented in this encounter Plan of Treatment Not on file documented as of this encounter Visit Diagnoses Not on filedocumented in this encounter Care Teams Specimen Preparation Assistant Relationship Specialty Start Date End Date Name, MD Laurent [address] [place] [address] PCP - General Family Medicine 10/28/18 documented as of this encounter
--- OUTSIDE RECORDS SUMMARY | 2025-08-27 08:31 | XMS_ITS | Encounter Summary ---
Author Organization [facility] Address [address] [facility] [address] [place] [address] Care Team Providers Care Sewage Plant Supervisor Name Role Phone Name, Laurent DUPREE Primary Care Provider [phone] Reason for Visit * Reason Comments Med Refill Encounter Details Date Type Department Care Team ([facility] st Contact Info) Description 06/10/2025 Refill [facility] MEDICINE [address] [place] [address] Lara Bourne FNP [address] [place] [address] Social History Tobacco Use Types Packs/Day Years Used Date Smoking Tobacco: Never Passive Smoke Exposure: Never Smokeless Tobacco: Never Alcohol Use Standard Drinks/Week Comments Never 0 (1 standard drink = 0.6 oz pur e alcohol) Depression Answer Date Recorded Patient Health Questionnaire-9 Score 0 02/26/2025 Patient Health Questionnaire-9 Score 0 02/26/2025 Last PHQ-9: Questionnaire Data Not on file 0 02/26/2025 Housing Stability Answer Date Recorded What is your housing situation today? I have raul steward 05/18/[address] you li ve. Do you have problems with any of the following? None of the above 05/18/2024 Food Insecurity Answer Date Recorded Within the past 12 months, y ou worried that your food would run out before you got money to buy more: Never True 05/18/2024 Within the past 12 months,th e food you bought just didn't last and you didn't have enough money to get more: Never True Transportation Answer Date Recorded In the past 12 months, has l ack of transportation kept you from medical appts, meetings, work or from getting things needed for daily living? No 05/18/2024 Utilities Answer Date Recorded In the past 12 months, has t he electric, gas, oil or water company threatened to shut off services in your home? No 05/18/2024 Depression Answer Date Recorded Patient Health Questionnaire-2 Score 0 02/26/2025 Internet Access Answer Date Recorded Internet Access Q1 Yes 08/03/2024 Internet Access Q2 Not on file 08/03/2024 Comments Unknown Sex and Gender Information Value Date Recorded Sex Assigned at Female 10/01/2022 10:34 AM EDT Legal Sex Female 10:34 AM EDT Gender Identity Female 10/01/2022 10:34 AM EDT Sexual Orientation Straight 10/01/2022 10 :34 AM EDT documented as of this encounter Plan of Treatment Not on file documented as of this encounter Visit Diagnoses Not on filedocumented in this encounter Additional Health Concerns Assessment Noted Time PHQ-9 Depression Total Score: 0 02/27/20 25 12:27 PM EDT documented as of this encounter Care Teams Sewage Plant Supervisor Relationship Specialty Start Date End Date Name, MD Laurent [address] [place] [address] PCP - General Family Medicine 10/28/18 documented as of this encounter
--- OUTSIDE RECORDS SUMMARY | 2025-08-27 08:31 | XMS_ITS | Clinical Summary ---
Author Organization [employer] Address [address] [place] [address] Care Team Providers Care Supervisor Assembly Room Name Role Phone Name, Laurent DUPREE Primary Care Provider [phone] Allergies No known active allergies Medications cloNIDine (Catapres) 0.1 MG tablet 3 Active hydrOXYzine HCl (Atarax) 10 MG tablet 3 Active OLANZapine (ZyPREXA) 10 MG tablet 3 Active LORazepam (Ativan) 0.5 MG tablet 3 Active albuterol 108 (90 Base) MCG/ACT inhaler Inhale 2 puffs every 4 (four) hours if needed for wheezing or shortness of breath. Maximum 8 puffs per day 18 g 3 5 02/27/20 26 Active omeprazole (PriLOSEC) [address] capsule TAKE 1 CAPSULE BY MOUTH EVERY DAY 90 capsule 5 Active Active Problems Problem Noted Date Diagnosed Date Non-cardiac chest pain 02/26/2025 Nausea and vomiting 02/26/2025 Healthcare maintenance 02/26/2025 Acute cough 02/26/2025 Request for sterilization 09/22/2024 History of marijuana use 09/22/2024 H/O tubal ligation 05/26/2024 Overview (05/26/2024): 2021 after last child Children are 2, 4 and 5 Bipolar affective disorder in remission 05/25/20 History of asthma 04/16/2024 History of depression 04/16/2024 Post traumatic stress disorder (PTSD) 04/16/2024 Blood type, Rh negative 04/16/2024 Seasonal allergies 04/16/2024 Chlamydial infection 12/05/2018 10/18/2023 Gonorrhea 12/05/2018 10/18/2023 Resolved Problems Problem Noted Date Diagnosed Date Resolved Date Class 1 obesity 04/16/2024 05/25/2024 Atypical chest pain 03/03/2024 05/25/20 Assessment & Plan (03/03/2024 12:39 PM EDT): EKG within normal limits. Previous labs were normal, current chest pain may be triggered by underlying URI + anxiety. Counseled to use Tylenol 2-3 times per day x5 days. Counseled to follow up with mental health provider regarding Anxiety. Counseled to cut down on THC use. Generalized body aches 03/03/202405/25 Pain in female pelvis 10/18/2023 10/18/20232023 Spontaneous bruising 10/18/2023 10/18/2023 024 Leg pain, left 10/28/2018 10/18/2023 05/25/2024 Encounters Date Type Department Care Team Description 07/26/[address] [address] Laurent Segura MD ER Follow-up 07/20/2025 Orders Only [facility] External Provider, [facility] 07/16/[address] [address] Laurent Segura MD No Show (Pt no show sick on site ) 07/15/[address] [address] Eliane Cano MA chart prep 07/14/[address] [address] Laurent Segura MD Nurse Triage 06/17/[address] [address] Laurent Segura MD Chart Prep 06/16/2025 Telephone [address] [place] [address] Laurent Segura MD Nurse Triage 06/11/2025 Patient Outreach [facility] [address] [place] [address] Laurent Segura MD Pre-visit Planning (SDOH will need to be completed in office. ) 06/10/2025 Refill [facility] [address] [place] [address] Lara Bourne FNP from Last 3 Months Immunizations Immunization Administration Dates Next Due DTaP 09/22/2003, 0,04/20/1999,01/31,1998 DTaP, 5 pertussis antigens 09/22/2003,,04/20/1999,01/31,1998 HPV, Quadrivalent 12/01/2011,07/29/2011,04/21/20 11 Hep A, ped/adol, 2 dose 04/19/2015,03/18/2013 Hep B, Adolescent or Pediatric 07/26/1999,1997,1998 Hep B, Unspecified 01/06/2019 Hib (PRP-OMP) 12/20/1999, 9,01/31/1999,11/23 Hib (PRP-T) 12/20/1999, 9,01/31/1999,11/23 IPV 09/22/2003, 9,01/31/1999,11/23 Influenza injectable quadriv alent preservative free 09/06/2021,10/06/2008 Influenza, IIV3, injectable 09/18/2019 MMR 01/06/2019,09/22/2003,09/20/1999 Meningococcal MCV4P ACYW-135 07/27/2009 Moderna Covid-19 Vaccine 12+ 08/15/2022,11/03/20 21 OPV, Trivalent 04/20/1999 Tdap 06/07/2021, 9,03/24/2016,07/27 Varicella 07/14/2008,09/20/1999 Social History Tobacco Use Types Packs/Day Years Used Date Smoking Tobacco: Never Passive Smoke Exposure: Never Smokeless Tobacco: Never Tobacco Cessation:Counseling Given: Not Answered Alcohol Use Standard Drinks/Week Comments Never 0 (1 standard drink = 0.6 oz pur e alcohol) Depression Answer Date Recorded Patient Health Questionnaire-9 Score 0 02/26/2025 Patient Health Questionnaire-9 Score 0 02/26/2025 Last PHQ-9: Questionnaire Data Not on file 0 02/26/2025 Housing Stability Answer Date Recorded What is your housing situation today? I have raul bin 05/18/[address] you li [...] Q2 Not on file 08/03/2024 Comments Unknown Intention Date Recorded No desire to become (finding) 0 02/26/2025 Sex and Gender Information Value Date Recorded Sex Assigned at Female 10/01/2022 10:34 AM EDT Legal Sex Female 10:34 AM EDT Gender Identity Female 10/01/2022 10:34 AM EDT Sexual Orientation Straight 10/01/2022 10 :34 AM EDT Last Filed Vital Signs Vital Sign Reading Time Taken Comments Blood Pressure 115/72 02/26/2025 11:30 AM EDT Pulse 68 02/26/2025 11:30 AM EDT Temperature 36.8 C (98.3 F) 02/26/2025 11:30 AM EDT Respiratory Rate 20 02/26/2025 11:30 AM EDT Oxygen Saturation 99% 09/07/2024 1:53 PM EDT Inhaled Oxygen Concentration - - Weight 62.7 kg (138 lb 2 oz) 02/26/2025 11:30 AM EDT Height 160 cm (5' 3 ) 02/26/2025 11:30 AM EDT Body Mass Index 24.47 02/26/2025 11:30 AM EDT Plan of Treatment Health Maintenance Due Date Last Done Comments Disability Screening 1998 Alcohol/Substance Use Screening 2010 Pap Smear 12/07/2023 12/07/2020 SDOH Screening 05/18/2025 05/18/2024 COVID-19 Vaccine ( season) 2025 08/15/2022, 11/03/2021 Influenza Vaccine (#1) 2025 , 09/18/2019, 10/06/2008 Depression Screening 02/26/2026 02/26/2025, 02/27/20 25 Family Planning (PISQ) 02/26/2026 02/26/2025 Tobacco Screening 02/26/2026 02/26/2025 DTaP/Tdap/Td Vaccines (11 - Td or Tdap) 07/20/2035 07/20/2025, 06/07/2021, 09/18/2019, Additional history exists Zoster Vaccines (1 of 2) 2048 RSV Patients and Patients Aged 60 years or older (1 - 1-dose 75+ series) 2073 HIB Vaccines Completed 12/20/1999, 12/02, 04/20/1999, Additional history exists IPV Vaccines Completed 09/22/2003, 04/02, 04/20/1999, Additional history exists Meningococcal Vaccine Aged Out 07/27/2009 No patricia breanna eligible based on patient's age to complete this topic HPV Vaccines Completed 12/01/2011, 07/03, 04/21/2011 Hepatitis A Vaccines Completed 04/19/2015, 03/18/20 13 Hepatitis B Vaccines Completed 01/06/2019, 07/26/1999, 1998, Additional history exists HIV Screening Completed 02/26/2025 Hepatitis C Screening Completed 02/26/2025 Meningococcal B Vaccine Aged Out No l onger eligible based on patient's age to complete this topic Pneumococcal Vaccine: Pediatrics (0 to 5 Years) and At-Risk Patients (6 to 49) Years Aged Out No longer eligible based on patient's age to complete this topic RSV under 20 months Aged Out No longe r eligible based on patient's age to complete this topic Rotavirus Vaccines Aged Out No longer eligible based on patient's age to complete this topic Procedures Procedure Name Priority Date/Time Associated Diagnosis Comments XR FINGERS 2+ VIEWS LEFT Routine 07/20/2025 7:31 PM EDT HEPATITIS C AB W/REFL TO HCV RNA, QN, PCR Routine 02/26/2025 1:13 PM EDT Healthcare maintenance HIV 1/2 ANTIGEN/ANTIBODY, FOURTH GENERATION W/RFL Routine 02/26/2025 1:13 PM EDT Healthcare maintenance THINPREP PAP Routine 12/07/2020 2:51 PM EST from Last 3 Months or Most Recently Relevant to Health Maintenance Results * XR Fingers 2+ Views Left (07/20/2025 7:31 PM EDT) Anatomical Region Laterality Modality Upper Extremities, Fingers Left Radio graphic Imaging 07/20/2025 7:31 PM EDT Narrative 07/20/2025 7:32 PM EDT [place] [address] XRay Report Signed Patient: Ana Bundy MR#: [id number] 7 : 2000 Acct:[id number] Age/Sex: 24 / F ADM Date: 07/20/25 Loc: HO.ED Attending Dr: Ordering Physician: Jaclyn Chandler Date of Service: 07/20/25 Procedure(s): XR finger LT min 2V Accession Number(s): [id number] cc: Name,Laurent DUPREE; Jaclyn Chandler CLINICAL HISTORY: lac to left thumb ?retained glass 3 view left 1st digit Comparison: None Findings: Soft tissue swelling of the 1st digit noted. No displaced fracture or dislocation of the 1st digit. No retained metallic foreign body. Multiple foreign bodies vein of the dens or radiopaque. IMPRESSION: 1. No acute fracture or dislocation. 2. No dense or metallic foreign body by radiographs This document has been electronically signed by: Owen Ortega MD on 07/20/2025 19:31:18 Dictated By: Owen Ortega MD Signed By: <Electronically signed by Owen Ortega MD in OV> 07/20/251930 DD/ 30 TD/TT: 07/20/251930 Centerless Grinder Set Up Operator: Procedure Note Donotuseinterpreter, Image - 07/20/2025 [place] [address] XRay Report Signed Patient: Aminah Bundy#: [id number] 7 : 2000Acct:[id number] Age/Sex: 24 / FADM Date: 07/20/25 Loc: HO.ED Attending Dr: Ordering Physician: Jaclyn Chandler Date of Service: 07/20/25 Procedure(s): XR finger LT min 2V Accession Number(s): [id number] cc: Name,Laurent DUPREE; Jaclyn Chandler CLINICAL HISTORY: lac to left thumb ?retained glass 3 view left 1st digit Comparison: None Findings: Soft tissue swelling of the 1st digit noted. No displaced fracture or dislocation of the 1st digit. No retained metallic foreign body. Multiple foreign bodies vein of the dens or radiopaque. IMPRESSION: 1. No acute fracture or dislocation. 2. No dense or metallic foreign body by radiographs This document has been electronically signed by: Owen Ortega MD on 07/20/2025 19:31:18 Dictated By: Owen Ortega MD Signed By: <Electronically signed by Owen Ortega MD in OV> 07/20/251930 DD/ 30 TD/TT: 07/20/251930 Centerless Grinder Set Up Operator: [facility] External Provider IMG XR PROCEDURES Final Result * Hepatitis C Antibody with Reflex to HCV, RNA, Quantitative, Real-Time PCR (02/26/2025 1:13 PM EDT) Hepatitis C Antibody Nonreactive Nonreactive [facility] Comment:Antibodies to HCV no t detected; does not exclude early acuteHCV infection. Blood Venous blood specimen / Unknown 02/26/2025 1:13 PM EDT 02/26/2025 4:27 PM EDT [facility] LAB BLOOD ORDERABLES Final Res ult Performing Organization Address [facility] Co de Phone Number [facility] [address] [place] [address] [phone] * HIV-1/2 Antigen and Antibodies, Fourth Generation, with Reflexes (02/26/2025 1:13 PM EDT) HIV AB/AG Nonreactive Nonreactive [facility] Comment:HIV-1 p24 Ag and/or HIV-1/HIV-2 Ab not detected.A test result that is nonreactive does not exclude thepossibility of exposure to or infection with HIV-1 and/orHIV-2. Nonreactive results in this assay for individualswith prior exposure to HIV-1 and/or HIV-2 may be due toantigen and antibody levels that are below the limit ofdetection of this assay.The [employer] HIV Ag/Ab Combo assay result andsupplemental assay results should be interpreted inconjunction with the patient's clinical presentation,history and other laboratory results. If the results areinconsistent with clinical evidence, additional testing issuggested to confirm the result. Blood Venous blood specimen / Unknown 02/26/2025 1:13 PM EDT 02/26/2025 4:27 PM EDT [facility] BLOOD ORDERABLES Final Res ult Performing Organization Address [facility]/ZIP Co de Phone Number [facility] [address] [place] [address] [phone] * THINPREP PAP (12/07/2020 2:51 PM EST) Clinical Information: None given [facility] COMMENT SEE COMMENT [facility] Comment: EXPLANATORY NOTE: The Pap is a screening test for cervical cancer. It is not a diagnostic test and is subject to false negative and false positive results. It is most reliable when a satisfactory sample, regularly obtained, is submitted with relevant clinical findings and history, and when the Pap result is evaluated along with historic and current clinical information. Accreditation Specialist : SEE COMMENT [facility] Comment: KF, CT(ASCP) CT screening location: [place] [address] Interpretation/R esult: Negative for intraepithelial lesion or malignancy. [facility] LMP: NONE [facility] Prev. BX: NONE [facility] Prev. PAP: NONE [facility]IV[facility] Review Accreditation Specialist : SEE COMMENT [facility] Comment: BLC,CT(ASCP) CT screening location: [place] [address] SOURCE: None given [facility] Statement Of Adequacy: SEE COMMENT [facility] Comment: Satisfactory for evaluation. Endocervical/transformation zone component present. Age and/or menstrual status not provided 12/07/2020 2:51 PM EST us Radha GIPSON LAB PATHOLOGY ORDERABLES Final Result [facility] [address] from Last 3 Months or Most Recently Relevant to Health Maintenance Insurance [facility] [address] [place] [address] Care Teams Supervisor Assembly Room Relationship Specialty Start Date End Date Name, MD Laurent [address] [place] [id number] PCP - General Family Medicine 10/28/18
--- OUTSIDE RECORDS SUMMARY | 2025-08-27 08:31 | XMS_ITS | Encounter Summary ---
Author Organization [employer] Address [address] [place] [address] Care Team Providers Care Conditioning Machine Operator Name Role Phone Name, Laurent DUPREE Primary Care Provider [phone] Encounter Details Date Type Department Care Team ([facility] st Contact Info) Description 02/26/2025 Telephone [facility] [address] [place], [place] [phone] Name, MD Laurent [address] [place] [address] Social History Tobacco Use Types Packs/Day Years [...] AM EDT documented as of this encounter Functional Status * Over the past 2 weeks, how often have you been bothered by any of the following problems? Question Answer Date of Assessment Author Patient Health Questionnaire-2 Score 0 02/26/2025 12:27 PM EDT Estefani Kamara [place] * Little interest or pleasure in doing things Answer Date of Assessment Author Not at all 02/26/2025 12:27 PM EDT Estefani Kern [place], [place] * Feeling down, depressed, or hopeless Answer Date of Assessment Author Not at all 02/26/2025 12:27 PM EDT Estefani Kern [place], [place] * Trouble falling or staying asleep, or sleeping too much Answer Date of Assessment Author Not at all 02/26/2025 12:27 PM EDT Estefani Kern [place], [place] * Feeling tired or having little energy Answer Date of Assessment Author Not at all 02/26/2025 12:27 PM EDT Estefnai Kern [place], [place] * Poor appetite or overeating Answer Date of Assessment Author Not at all 02/26/2025 12:27 PM EDT Estefani Kern [place], [place] * Feeling bad about yourself - or that you are a failure or have let yourself or your family down Answer Date of Assessment Author Not at all 02/26/2025 12:27 PM EDT Estefani Kern [place], [place] * Trouble concentrating on things, such as reading the newspaper or watching television Answer Date of Assessment Author Not at all 02/26/2025 12:27 PM EDT Estefani Kern [place], [place] * Moving or speaking so slowly that other people could have noticed? Or the opposite - being so fidgety or restless that you have been moving around a lot more than usual. Answer Date of Assessment Author Not at all 02/26/2025 12:27 PM EDT Estefani Kern [place], [place] * Thoughts that you would be better off or hurting yourself in some way Answer Date of Assessment Author Not at all 02/26/2025 12:27 PM EDT Estefani Kern [place], [place] * Patient Health Questionnaire-9 Score Answer Date of Assessment Author 0 02/26/2025 12:27 PM EDT Estefani Kern [place], [place] * Over the last 2 weeks, how often have you been bothered by any of the following problems? Question Answer Date of Assessment Author Feeling nervous, anxious, or on edge 0 02/26/2025 12:27 PM EDT Estefani Carmona MA Not being able to stop or control worrying 0 02/26/2025 12:27 PM EDT Estefani Carmona MA Worrying too much about different things 0 02/26/2025 12:27 PM EDT Estefani Carmona MA Trouble relaxing 0 02/26/2025 12:27 PM EDT Estefani Carmona MA Being so restless that it is hard to sit still 0 02/26/2025 12:27 PM EDT Estefani Carmona MA Becoming easily annoyed or irritable 0 02/26/2025 12:27 PM EDT Estefani Carmona MA Feeling afraid as if something awful might happen 1 02/26/2025 12:27 PM EDT Estefani Roman MA BALAJI-7 Total Score 1 02/26/2025 12:27 PM EDT Estefani Carmona MA documented as of this encounter Miscellaneous Notes * Telephone Encounter - Renae De Jesus - 02/26/2025 10:04 AM EDT Tc from pt regarding a scheduled physical appointment, stating that they were not notified about it. The ticket writer attempted to resolve the issue by offering r/s, but the patient declined. During the conversation, the patient expressed frustration, stating that their health needs have not been adequately addressed. Contact pt at [phone] documented in this encounter Plan of Treatment Not on file documented as of this encounter Visit Diagnoses Not on filedocumented in this encounter Additional Health Concerns Assessment Noted Time PHQ-9 Depression Total Score: 0 02/27/20 25 12:27 PM EDT documented as of this encounter Care Teams Conditioning Machine Operator Relationship Specialty Start Date End Date Name, MD Laurent [address] [place] [address] PCP - General Family Medicine 10/28/18 documented as of this encounter
--- OUTSIDE RECORDS SUMMARY | 2025-08-27 08:31 | XMS_ITS | Encounter Summary ---
Author Organization [employer] Address [address] [place] [address] [address] [place] [address] Care Team Providers Care Audio Visual Design Engineer Name Role Phone Name, Laurent DUPREE Primary Care Provider [phone] Reason for Visit * Reason Onset Date Comments ER Follow-up 04/15/2024 Nurse Triage 04/15/2024 No Show 04/15/2024 Encounter Details Date Type Department Care Team ([facility] st Contact Info) Description 04/15/2024 Telephone [facility] [address] [place], [place] [phone] Name, MD Laurent [address] [place], [place] [phone] ER Follow-up; Nurse Triage; No Show Social History Tobacco Use Types Packs/Day Years Used Date Smoking Tobacco: Never Passive Smoke Exposure: Never Smokeless Tobacco: Never Alcohol Use Standard Drinks/Week Comments Never 0 (1 standard drink = 0.6 oz pur e alcohol) Comments Unknown Sex and Gender Information Value Date Recorded Sex Assigned at Female 10/01/2022 10:34 AM EDT Legal Sex Female 10:34 AM EDT Gender Identity Female 10/01/2022 10:34 AM EDT Sexual Orientation Straight 10/01/2022 10 :34 AM EDT documented as of this encounter Miscellaneous Notes * Telephone Encounter - Chayo Ndiaye RN - 04/20/2024 3:29 PM EDT No show ED f/u noted. Pt was discharged from ED in stable condition following evaluation for costochondritis. Pt to f/u prn symptoms. * Telephone Encounter - Janna Rubalcava - 04/20/2024 2:50 PM EDT Patient no show to sick onsite appt on 04/20/24 with Shiela Augustin. * Telephone Encounter - Christa Farmer RN - 04/15/2024 9:02 AM EDT called pt to triage, spoke to pt. pt states seen [facility] on 04/14 for chest pain, diagnosed with Costochondritis. pt states has happened before and states the pain radiates from both side of the chest intermittently and through to the back. pt denies nausea or vomiting but states mildly sob duringthe episodes. nothing acute found and testing for heart difficulty was negative. given appt Friday 04/20 with blue team provider at 3:30 for exam, recheck, and follow up as needed. will task to clinical coordinator pool to obtain ER records. advised home care: rest, fluids, heat, lie down, and call back if worsening or new concerns. pt understands and agrees with plan. insurance verified. Protocol Used: Chest Pain (Adult) Protocol-Based Disposition: Home Care Positive Triage Question:* All higher-acuity triage questions were negative Care Advice Discussed: * Reasons To Call Back - You become worse * Telephone Encounter - Bronwyn Salazar - 04/15/2024 8:36 AM EDT Patient calling to report ED visit on : Date: 04/14 [facility]: [facility] Seen for: Chest Pain Patient advised will forward to team nurse for follow up. Symptom: Chest Pain - Adult Outcome: Schedule an urgent appointment (within 1 hour) or talk to a nurse or provider soon Reason: Caller denied all higher acuity questions The caller accepted this outcome documented in this encounter Plan of Treatment Not on file documented as of this encounter Visit Diagnoses Not on filedocumented in this encounter Care Teams Audio Visual Design Engineer Relationship Specialty Start Date End Date Name, MD Laurent [address] [place] [address] PCP - General Family Medicine 10/28/18 documented as of this encounter
--- NOTE | 2025-08-27 08:37 | ED.GENADULT ---
HPI - General Adult General Chief complaint: Wound/Laceration Stated complaint: hand lac Time Seen by Provider: 08/27/25 08:29 Source: patient, RN notes reviewed and old records reviewed Mode of arrival: ambulatory Limitations: no limitations History of Present Illness ED Provider: Constance [facility] narrative: Patient is a 24-year-old female presenting to the emergency department with complaint of lacerations to her right hand. States that she was moving a glass jar on her vanity and slammed it down which accidentally caused the glass did shatter. Denies any decreased range of motion, numbness or tingling. Has lacerations to the palm of her right hand as well as her middle finger. States Tdap is up-to-date as she was recently seen here for laceration in July. Denies any other injuries. States does not feel as though she got glass into her lacerations. States that she had glass in her laceration a month ago and this does not feel the same. complaint: lacerations Related Data Home Medications ?Medication ?Instructions ?Recorded ?Confirmed clonidine HCl 0.1 mg tablet 0.1 mg PO BID 09/30/23 09/30/23 olanzapine 15 mg tablet 15 mg PO BEDTIME 09/30/23 09/30/23 oxcarbazepine 300 mg tablet 300 mg PO BID 09/30/23 09/30/23 Previous Rx's ?Medication ?Instructions ?Recorded cephalexin 500 mg capsule 500 mg PO TID 2 days #6 caps 07/20/25 Allergies Allergy/AdvReac Type Severity Reaction Status Date / Time No Known Allergies (No Known Allergy Verified 08/27/25 08:12 Allergies*) Review of Systems Review of Systems: as per hpi Yes all other systems are reviewed and are negative Constitutional: Constitutional: Reports as per HPI [facility] Social History Social History Advance Directives: No Advance Directives Information Provided: Yes Do you have a plan to hurt others: No Plan Physical Exam ED Vital Signs: Vital Signs - 24 hr 08/27/25 08:11 Temperature 98.2 F Pulse Rate 82 Respiratory Rate 18 Blood Pressure 107/57 L Pulse Oximetry 98 Oxygen Delivery Method Room Air BMI result Body Mass Index 23.0 Vital signs have been reviewed and appear to be correct. Blood pressure normal. Heart rate normal. Respiratory rate normal. Temperature normal. Oxygen saturation normal. Const General: cooperative, healthy appearing and no acute distress Orientation/consciousness: oriented to person, oriented to place, oriented to time and patient oriented x3 Limitations: no limitations HENMT Head: Yes normocephalic and Yes atraumatic Ears: external ears normal General nose exam: Normal external nose present Face and sinus: Yes face symmetric Mouth: oropharynx normal and moist mucous membranes Throat: Yes uvula midline Eyes Pupils: Equal, round and reactive pupils present Neck Neck: Yes normal visual inspection and Yes supple Resp Effort & Inspection: normal respiratory effort and able to speak in complete sentences Auscultation: clear to auscultation bilaterally Cardio Rate: regular rate Rhythm: regular rhythm Heart sounds: S1 normal heart sound present and S2 normal heart sound present GI Palpation (GI): Soft to palpation and nontender Auscultation: normoactive bowel sounds General: Yes no CVA tenderness Back/Spine/Pelvis Back: no CVA tenderness Skin General skin exam: elasticity normal and turgor normal Neuro General: oriented to person, oriented to place, oriented to time, patient oriented x3, moves all extremities, no focal motor deficits and CN's II-XI intact bilaterally Cranial nerves: Yes Equal, round and reactive pupils present Cognition (Neuro): normal cognition Extrem General: Yes full ROM, Yes no pedal edema and Yes no calf tenderness Right upper extremity: Extremity exam: right hand Details: normal capillary refill, neuromotor exam normal, neurosensory exam normal, vascular exam Details: radial pulse present, ulnar pulse present and normal capillary refill, normal ROM of fingers and laceration 3rd digit palmar aspect distal Details: linear, palm palmar aspect Details: linear Hand/finger images:  1. 2cm laceration 2. 1cm lac distal to DIP Psych Mental Status: mental status grossly normal Affect: normal affect Thought process: Normal thought process present Medications Administered Discontinued Medications Generic Name Dose Route Start Last Admin Trade Name Ce PRN Reason Stop Dose Admin Bacitracin 1 appl 08/27/25 08:41 08/27/25 08:59 Bacitracin Oint 0.9 Gm Packet TOPICAL 08/27/25 08:42 1 appl ONCE ONE Administration Protocol Lidocaine HCl 5 ml 08/27/25 08:41 08/27/25 08:59 Lidocaine Hcl 1 % Mpf 5 Ml Vial INFILTRATI 08/27/25 08:42 5 ml ONCE ONE Administration Procedures Laceration Laceration 1: Site: hand Side (If applicable): right Size (cm): 2 Description: linear Depth: simple, single layer Local Anesthetic: lidocaine 1% Amount of anesthesia used (mL): 3 Pre-repair: wound explored (no evidence of FB), irrigated extensively and deep structures intact Skin layer closed with: other (prolene) Size (cm): 5-0 Number of sutures: 4 Technique: simple, interrupted Laceration 2: Site: hand Side (If applicable): right Size (cm): 1 Description: linear Depth: simple, single layer Local Anesthetic: lidocaine 1% Amount of anesthesia used (mL): 1 Pre-repair: wound explored, irrigated extensively and deep structures intact Skin layer closed with: other (prolene) Size (cm): 5-0 Number of sutures: 2 Technique: simple, interrupted Medical Decision Making Medical Decision Making [facility] Narrative: Patient is a 24-year-old female presenting to the emergency department with complaint of lacerations to her right hand. On exam patient is awake, A+Ox3, VS WNL, afebrile, normal neurological exam without focal deficits, physical exam findings as above. Given reported symptoms and physical exam findings, initial differential includes but is not limited to lacerations, foreign body. No evidence of tendon injury, full ROM to all fingers and patient is neurovascularly intact. X-ray notable for no radiopaque FB. My interpretation is in agreement with the radiologist's interpretation. Tdap UTD. Lacerations repaired as per procedure notes. No visible foreign body noted upon irrigation and cleansing of wounds. Wound care instructions and return precautions discussed at bedside. Patient verbalized understanding of and agreement with plan. Differential Diagnosis Differential Diagnoses: The differential diagnosis associated with the presentation includes as per mdm Admission/Observation Consideration of admission/observation: Escalation of care including admission/observation considered Patient would have been admitted to the hospital and transferred to appropriate facility had their clinical presentation warranted hospital admission. Independent Interpretation I performed an independent interpretation of an: Plain X-Ray Interpretation: No evidence of radiopaque FB on xray Radiology Impression Discussion of test interpretation with radiology: I have reviewed the radiologist's reading. Radiologist Impression: XR/XR hand RT min 3V IMPRESSION: Unremarkable examination of the right hand. No radiopaque foreign body is identified. External Record Review External record reviewed: Inpatient record, Office record and Outpatient record Discharge Plan Discharge Clinical Impression: Laceration of finger of right hand Qualifiers: Encounter type: initial encounter Finger: middle finger Damage to nail status: without damage Foreign body presence: without foreign body Qualified Code(s): S61.212A - Laceration without foreign body of right middle finger without damage to nail, initial encounter Laceration of hand, right Qualifiers: Encounter type: initial encounter Foreign body presence: without foreign body Qualified Code(s): S61.411A - Laceration without foreign body of right hand, initial encounter Patient Disposition: Home, Self-Care Instructions: Care For Your Stitches (DC), Laceration (DC), Stitches Removal (ED) Additional Instructions: You have been evaluated in the emergency department today for lacerations to your finger and hand. Your lacerations were repaired in the emergency department with 6 (4 and 2) sutures. Please keep the areas surrounding the lacerations clean and dry and keep dressings in place for the next 24 hours. After that please change the dressings and assess the wounds daily. Do not submerge the wounds in water until the stitches have been removed and the wounds have fully healed (no washing dishes, swimming, hot tubs, etc. and ESPECIALLY no outdoor water). Keep the areas out of direct sunlight for the next 6 months to help prevent scarring. You should have the sutures removed in 7-10 days. If you develop fever, redness, swelling at the site of your lacerations, or thick yellow drainage please come back to the ER for a wound check. Prescriptions: No Action clonidine HCl 0.1 mg tablet 0.1 mg PO BID oxcarbazepine 300 mg tablet 300 mg PO BID olanzapine 15 mg tablet 15 mg PO BEDTIME cephalexin 500 mg capsule 500 mg PO TID 2 Days Qty: 6 0RF Stand Alone Forms: Work/School Release Print Language: Peruvian
[2025-08-27] MEDS: Lidocaine HCl 1 % MPF 5 ML VIAL INFILTRATI (08:59)
--- NOTE | 2025-08-27 09:00 | PC.NURSE ---
medds obtained for provider to administer
[2025-08-27 09:56] VITALS: BP 107/57; PULSE 82; RESP 18; TEMP 36.8; O2SAT 98
== END 2025-08-27 09:58 | disposition home or self-care (01) ==
PROVIDERS: Emergency Provider Emergency Medicine Emergency Medical Services; PCP Internal Medicine Geriatric Medicine
DX: S61.411A Laceration without foreign body of right hand, initial encounter (principal); S61.212A Laceration without foreign body of right middle finger without damage to nail, initial encounter; W25.XXXA Contact with sharp glass, initial encounter; Y93.9 Activity, unspecified; Y92.9 Unspecified place or not applicable; Y99.9 Unspecified external cause status; Z79.899 Other long term (current) drug therapy
CPT/HCPCS: 12002; 73130; 99284; J2003

== ENCOUNTER → 2025-08-27 08:15 | Outpatient (BNV) | payer MEDICAID, SELFPAY | PROVIDERS: Emergency Provider Emergency Medicine Emergency Medical Services; PCP Internal Medicine Geriatric Medicine; Visit Provider Radiology Diagnostic Radiology | DX: S61.212A Laceration without foreign body of right middle finger without damage to nail, initial encounter (principal) | CPT/HCPCS: 73130 ==

== ENCOUNTER 2025-09-23 15:03 | Outpatient (REF) | payer MEDICAID, SELFPAY ==
--- OUTSIDE RECORDS SUMMARY | 2025-09-23 14:15 | XMS_ITS | Encounter Summary ---
Author Organization [employer] Address [address] [facility] [address] [place] [address] Care Team Providers Care Gas Treater Name Role Phone Name, Laurent DUPREE Primary Care Provider [phone] Reason for Visit * Reason Comments pap Encounter Details Date Type Department Care Team (Latest Contact Info) Description 09/23/2025 2:15 PM EDT Procedure Visit [facility] [address] [place] [address] Radha Gastelum CNM [address] [place] [address] Routine cervical smear (Primary Dx); Screening examination for venereal disease; Vulvar mass Social History Tobacco Use Types Packs/Day Years Used Date Smoking Tobacco: Every Day Cigarettes Passive Smoke Exposure: Never Smokeless Tobacco: Never Tobacco Cessation:Ready to Q uit: Not Asked; Counseling Given: Not Answered Alcohol Use Standard Drinks/Week Comments Never 0 (1 standard drink = 0.6 oz pur e alcohol) Depression Answer Date Recorded Patient Health Questionnaire-9 Score 0 02/26/2025 Patient Health Questionnaire-9 Score 0 02/26/2025 Last PHQ-9: Questionnaire Data Not on file 0 02/26/2025 Housing Stability Answer Date Recorded What is your housing situation today? I have raul steward 09/23/[address] you li ve. Do you have problems with any of the following? Pests such as bugs, ants, or mice 09/23/2025 Food Insecurity Answer Date Recorded Within the past 12 months, y ou worried that your food would run out before you got money to buy more: Sometimes True 2024 Within the past 12 months,th e food you bought just didn't last and you didn't have enough money to get more: Never True 09/23/2025 Transportation Answer Date Recorded In the past 12 months, has l ack of transportation kept you from medical appts, meetings, work or from getting things needed for daily living? No 09/23/2025 Utilities Answer Date Recorded In the past 12 months, has t he electric, gas, oil or water company threatened to shut off services in your home? No 09/23/2025 Depression Answer Date Recorded Patient Health Questionnaire-2 Score 0 02/26/2025 Internet Access Answer Date Recorded Internet Access Q1 Yes 09/23/2025 Internet Access Q2 Not on file 09/23/2025 Comments Unknown Intention Date Recorded No desire to become (finding) 1 Sex and Gender Information Value Date Recorded Sex Assigned at Female 10/01/2022 10:34 AM EDT Legal Sex Female 10:34 AM EDT Gender Identity Female 10/01/2022 10:34 AM EDT Sexual Orientation Straight 10/01/2022 10 :34 AM EDT documented as of this encounter Last Filed Vital Signs Vital Sign Reading Time Taken Comments Blood Pressure 100/68 09/23/2025 2:37 PM EDT Pulse 90 09/23/2025 2:37 PM EDT Temperature 37.1 C (98.7 F) 09/23/2025 2:37 PM EDT Respiratory Rate 16 09/23/2025 2:37 PM EDT Oxygen Saturation 96% 09/23/2025 2:37 PM EDT Inhaled Oxygen Concentration - - Weight 57.3 kg (126 lb 6.4 oz) 09/23/2025 2:37 P M EDT Height - - Body Mass Index 22.39 08/30/2025 5:18 PM EDT documented in this encounter Progress Notes * Radha Gastelum CNM - 09/23/2025 2:15 PM EDT Subjective Patient ID: Ana Bundy is a 25 y.o. female who presents for pap Pap NIL 2020. Gonorrhea/Chlamydia neg 01/2025. Has tubal ligation, not planning any more . 1 AMAB partner x 12y, no safety concerns. Would like pap based and blood STI testing today. Hep B immune, Hep C negative 01/2025. Notes vulvar lumps that come and go for past few months, painful and will sometimes drain. Not noted anywhere else on her body. Would like breast and pelvic exam today. Monthly menses, no heavy flow or bothersome cramping. Review of Systems Genitourinary: Negative for dyspareunia, dysuria, frequency, genital sores, hematuria, menstrual problem, pelvic pain, urgency, vaginal bleeding, vaginal discharge and vaginal pain. No abnormal pap, no abnormal bleeding, no breast pain, no breast mass, no nipple discharge Objective BP 100/68 (BP Location: Left arm, Patient Position: Sitting, BP Cuff Size: Adult) Pulse 90 Temp98.7 ??F (37.1 ??C) (Oral) Resp 16 Wt 126 lb 6.4 oz (57.3 kg) LMP 08/08/2025 SpO2 96% BMI22.39 kg/m?? Physical Exam Guest Services Agent present: declines outreach team member. Constitutional: Appearance: Normal appearance. Chest: Breasts: Right: Normal. No swelling, bleeding, inverted nipple, mass, nipple discharge, skin change or tenderness. Left: Normal. No swelling, bleeding, inverted nipple, mass, nipple discharge, skin change or tenderness. Genitourinary: General: Normal vulva. Labia: Right: No rash, tenderness, lesion or injury. Left: No rash, tenderness, lesion or injury. Vagina: Normal. No signs of injury and foreign body. No vaginal discharge, erythema, tenderness, bleeding or lesions. Cervix: No cervical motion tenderness, discharge, friability, lesion, erythema, cervical bleeding or eversion. Uterus: Normal. Not enlarged and not tender. Adnexa: Right adnexa normal and left adnexa normal. Right: No mass, tenderness or fullness. Left: No mass, tenderness or fullness. Comments: 1cm tender mass left outer aspect of labia majora near inner thigh, no redness or streaking Lymphadenopathy: Upper Body: Right upper body: No supraclavicular or axillary adenopathy. Left upper body: No supraclavicular or axillary adenopathy. Neurological: Mental Status: She is alert. Psychiatric: Mood and Affect: Mood normal. Behavior: Behavior normal. Assessment/Plan Diagnoses and all orders for this visit: Routine cervical smear - Pap Smear Pap today, will contact with results and plan. Screening examination for venereal disease - STI testing add on (NG, CT, Trich) - HIV-1/2 Antigen and Antibodies, Fourth Generation, with Reflexes; Future - Syphilis Screen; Future Pap based and serum labs as ordered. Asked about HSV testing in light of vulvar symptoms. Reviewed symptoms not consistent with HSV and I would not advise routine HSV screening. Together we agree to defer this testing today. Vulvar mass ? Lymph node vs small abscess. Use hot compresses daily for next week. Do not pick or squeeze area.Seek care urgently if increase in size, pain or redness. If it doesn't resolve, and all testing today negative, followup with PCP or I can refer to dermatology. documented in this encounter Plan of Treatment Upcoming Encounters Date Type Department Care Team (Late st Contact Info) Description 12/24/2025 10:00 AM EST Office Visit [facility] [address] [place] [phone] Name, MD Laurent [address] [place] [address] Scheduled Orders Name Type Priority Associated Diagnoses Orde r Schedule Pap Smear Pathology and Cytology Routine Routine cervical smear Ordered: 09/23/2025 STI testing add on (NG, CT, Trich) Pathology and Cytology Routine Screening examination for venereal disease Ordered: 09/23/2025 HIV-1/2 Antigen and Antibodies, Fourth Generation, with Reflexes Lab Routine Screening examination for venereal disease Expected: 09/23/2025 (Approximate), Expires: 09/23/2026 Syphilis Screen Lab Routine Screening examination for venereal disease Expected: 09/23/2025 (Approximate), Expires: 09/23/2026 documented as of this encounter Visit Diagnoses Diagnosis Routine cervical smear- Primary Screening for malignant neoplasm of the cervix Screening examination for venereal disease Vulvar mass Other specified symptom associated with female genital organs documented in this encounter Additional Health Concerns Assessment Noted Time PHQ-9 Depression Total Score: 0 02/27/20 25 12:27 PM EDT documented as of this encounter Care Teams Gas Treater Relationship Specialty Start Date End Date Name, MD Laurent [address] [place] [address] PCP - General Family Medicine 10/28/18 documented as of this encounter
--- OUTSIDE RECORDS SUMMARY | 2025-09-23 18:57 | XMS_ITS | Encounter Summary ---
Author Organization [employer] Address [address] [facility] [address] [place] [address] Care Team Providers Care Distribution Warehouse Manager Name Role Phone Name, Laurent DUPREE Primary Care Provider [phone] Reason for Visit * Reason Onset Date Comments ER Follow-up 04/15/2024 Nurse Triage 04/15/2024 No Show 04/15/2024 Encounter Details Date Type Department Care Team ([facility] st Contact Info) Description 04/15/[address] [facility] [address] [place], [place] [phone] Name, MD Laurent [address] [place], [place] [phone] ER Follow-up; Nurse Triage; No Show Social [...] Upcoming Encounters Date Type Department Care Team (Kathleen Contact Info) Description 12/24/2025 10:00 AM EST Office Visit [facility] [address] [place] [address] Name, MD Laurent [address] [place] [address] documented as of this encounter Visit Diagnoses Not on filedocumented in this encounter Care Teams Distribution Warehouse Manager Relationship Specialty Start Date End Date Name, [place] [address] PCP - General Family Medicine 10/28/18 documented as of this encounter
--- OUTSIDE RECORDS SUMMARY | 2025-09-23 18:57 | XMS_ITS | Encounter Summary ---
Author Organization [employer] Address [address] [facility] [address] [place] [address] Care Team Providers Care Customer Equipment Engineer Name Role Phone Name, Laurent DUPREE Primary Care Provider [phone] Reason for Visit * Reason Comments Care Coordination CHW outreach for SDO H food needs-referral completed Encounter Details Date Type Department Care Team (Latest Contact Info) Description 09/23/2025 Patient Outreach [facility] [address] [place] [address] Name, MD Laurent [address] [place] [address] Care Coordination (CHW outreach for SDOH food needs-referral completed /) Social History Tobacco Use Types Packs/Day Years [...] Q2 Not on file 09/23/2025 Comments Unknown Sex and Gender Information Value Date Recorded Sex Assigned at Female 10/01/2022 10:34 AM EDT Legal Sex Female 10:34 AM EDT Gender Identity Female 10/01/2022 10:34 AM EDT Sexual Orientation Straight 10/01/2022 10 :34 AM EDT documented as of this encounter Progress Notes * Quintin Kaur - 09/23/2025 3:09 PM EDT CHW Quintin Kaur, placed outbound call to patient for assistance with SDOH as a referral was received by the provider. Patient's name and were confirmed. Patient screened positive for the following SDOH food insecurities. Patient states family in on SNAP program at this time. CHW referral patient to the local list of pantries in the area for help. Patient verbalizes understanding, and ableto agree with plan to follow up. Patient educated on extended clinic hours on Mondays through Wednesdays, and Walk-In Urgent Care Located in [facility] of [facility]. Patient provided with after-hours line for [facility], , which offer night time triage service and option to transfer to honeycomb decapper provider if needed. documented in this encounter Plan of Treatment Upcoming Encounters Date Type Department Care Team (Late st Contact Info) Description 12/24/2025 10:00 AM EST Office Visit [facility] [address] [place] [phone] Name, MD Laurent [address] [place] [address] documented as of this encounter Visit Diagnoses Not on filedocumented in this encounter Additional Health Concerns Assessment Noted Time PHQ-9 Depression Total Score: 0 02/27/20 25 12:27 PM EDT documented as of this encounter Care Teams Customer Equipment Engineer Relationship Specialty Start Date End Date Name, MD Laurent [address] [place] [address] PCP - General Family Medicine 10/28/18 documented as of this encounter
--- OUTSIDE RECORDS SUMMARY | 2025-09-23 18:57 | XMS_ITS | Clinical Summary ---
Author Organization [facility] [address] [facility] Address [address] [place] [phone] Phone Care Team Providers Care Bullet Maker Name Role Phone No, Pcp (Do Not [...] Health Maintenance Due Date Last Done Comments HIV screening 2011 Hepatitis C screening 2016 Tetanus adult (Td q 10,TDAP once) 2018 Cervical cancer screening 2019 Influenza vaccine 07/02/2025 Covid-19 vaccine series (2024- season) 2025 RSV Immunization (1 - 1-dose 75+ series) 2073 Meningococcal B Vaccine Aged Out No l onger eligible based on patient's age to complete this topic Meningococcal Vaccine Aged Out No patricia breanna eligible based on patient's age to complete this topic Pneumococcal Vaccine (2 - 49 years) Aged Out No longer eligible based on patient's age to complete this topic Medical Devices Implanted Type Area Process Engineering Manager Device Identifier Shelf Expiration Date Model / Serial / Lot Nail Fem [id number] Peggy Rtrgd - [id number] Implanted:08/02 by Brent Murdock MD at [address] (Quantity not on file) Other-im plant Left: Femur J J (PAOLA) 01/29/2027 04.013.456 S / / [id number] Screw Melida 5x48mm F Im Nl - [id number] Implanted:08/02 by Brent Murdock MD at [address] (Quantity not on file) Other-im plant Left: Femur J J (PAOLA) 04.005.538 / / Screw Melida 5x30mm F Im Nl - [id number] Implanted:08/02 by Brent Murdock MD at [address] (Quantity not on file) Other-im plant Left: Femur J J (PAOLA) 04.005.520 / / Screw Melida 5x44mm F Im Nl - [id number] Implanted:08/02 by Brent Murdock MD at [address] (Quantity not on file) Other-im plant Left: Femur J J (PAOLA) 04.005.534 / / Screw Melida 5x42mm F Im Nl - [id number] Implanted:08/02 by Brent Murdock MD at [address] (Quantity not on file) Other-im plant Left: Femur J J (PAOLA) 04.005.532 / / Insurance [id number] MEDICAID [id number] MEDICAID [id number] MEDICAID [id number] MEDICAID [id number] MEDICAID Advance Directives * Full ACLS (Latest Code Status on File) Date Activated Date Inactivated Comments 08/09/2018 9:08 AM 08/12/2018 6:28 PM Care Teams Bullet Maker Relationship Specialty Start Date End Date No, Pcp (Do Not Change Name) PCP - General 08/28/18
--- OUTSIDE RECORDS SUMMARY | 2025-09-23 18:57 | XMS_ITS | Encounter Summary ---
Author Organization [employer] Address [address] [facility] 7t [place] [address] Care Team Providers Care Access Control Officer Name Role Phone Name, Laurent DUPREE Primary Care Provider [phone] Reason for Visit * Reason Onset Date Comments Nurse Triage 02/28/2024 Encounter Details Date Type Department Care Team ([facility] st Contact Info) Description 02/28/2024 Telephone [facility] [address] [place] [address] Name, MD Laurent [address] [place] [address] Nurse Triage Social History Tobacco Use Types [...] most days. Pt is unable to cometo [facility] today. Apt with DR. Acuña 03/03/24 @ [...] Description 12/24/2025 10:00 AM EST Office Visit [facility] [address] [place] [address] Name, MD Laurent [address] [place] [address] documented as of this encounter Visit Diagnoses Not on filedocumented in this encounter Care Teams Access Control Officer Relationship Specialty Start Date End Date NameLaurent MD [address] [place] [address] PCP - General Family Medicine 10/28/18 documented as of this encounter
--- OUTSIDE RECORDS SUMMARY | 2025-09-23 18:57 | XMS_ITS | Clinical Summary ---
Author Organization [employer] Address [address] [facility] 7t [place] [address] Care Team Providers Care Urologist Physician Name Role Phone Name, Laurent DUPREE Primary Care Provider [phone] Allergies No known active allergies Medications cloNIDine [...] Active Problems Problem Noted Date Diagnosed Date Thumb pain, left 08/30/2025 Laceration of right hand 08/30/2025 Non-cardiac chest pain 02/26/2025 Nausea and vomiting [...] Encounters Date Type Department Care Team Description 09/23/2025 2:15 PM EDT Procedure Visit [facility] [address] [place] [address] Radha Gastelum CNM Routine cervical smear (Primary Dx); Screening examination for venereal disease; Vulvar mass 09/23/2025 Patient Outreach [facility] [address] [place] [address] [phone] Laurent Segura MD Care Coordination (CHW outreach for SDOH food needs-referral completed /) 09/23/2025 Travel 09/22/2025 Telephone [facility] [address] [place] [address] [phone] Faina Cesar MA 09/17/2025 Telephone [facility] [address] [place] [address] [phone] Eliane Cano MA dec recalls 09/03/2025 10:30 AM EDT Clinical Support [address] [address] Araceli Chu, KALEY Laceration of right hand, foreign body presence unspecified, subsequent encounter 09/03/2025 Travel 08/30/2025 5:20 PM EDT Office Visit [facility] [address] [address] Lara Bourne, HEAD COUNSELOR Thumb pain, left (Primary Dx); Laceration of right hand, foreign body presence unspecified, subsequent encounter 08/30/2025 Travel 08/30/[address] [address] Laurent Segura MD Appointment Request 08/27/2025 Orders Only [facility] External Provider, [facility] 07/26/[address] [address] Laurent Segura MD ER Follow-up 07/20/2025 Orders Only [facility] External Provider, [facility] 07/16/[address] [address] Laurent Segura MD No Show (Pt no show sick on site ) 07/15/[address] [address] Eliane Cano MA chart prep 07/14/[address] [address] Laurent Segura MD Nurse Triage from Last 3 Months Immunizations Immunization Administration [...] Trivalent 04/20/1999 Tdap 06/07/2021, 9,03/24/2016,07/27 Varicella 07/14/2008,09/20/1999 Family History Medical History Relation Name Comments Colon cancer Paternal Grandmother Relation Name Status Comments Paternal Grandmother Social History Tobacco Use Types Packs/Day Years [...] oz) 09/23/2025 2:37 P M EDT Height 160 cm (5' 3 ) 08/30/2025 5:18 PM EDT Body Mass Index 22.39 08/30/2025 5:18 PM EDT Plan of Treatment Upcoming Encounters Date Type Department Care Team (Late st Contact Info) Description 12/24/2025 10:00 AM EST Office Visit [facility] [address] [place] [address] Name, MD Laurent [address] [place] [address] Health Maintenance Due Date Last Done Comments Lipid Panel 1998 Alcohol/Substance Use Screening 2010 Pneumococcal Vaccine: Pediatrics (0 to 5 Years) and At-Risk Patients (6 to 49) Years (1 of 2 - PCV) 2017 Pap Smear 12/07/2023 12/07/2020 COVID-19 Vaccine (3 - 2024- season) 2025 08/15/2022, 11/03/2021 Influenza Vaccine (#1) 2025 , 09/18/2019, 10/06/2008 Depression Screening 02/26/2026 02/26/2025, 02/27/20 Disability Screening 09/03/2026 09/03/2025 Family Planning (PISQ) 09/23/2026 09/23/2025 SDOH Screening 09/23/2026 09/23/2025 Tobacco Screening 09/23/2026 09/23/2025 DTaP/Tdap/Td Vaccines (11 - Td or Tdap) [...] Name Priority Date/Time Associated Diagnosis Comments XR HAND 3+ VIEWS RIGHT Routine 08/27/2025 8:15 AM EDT XR FINGERS 2+ VIEWS LEFT Routine 07/20/2025 7:31 PM EDT HEPATITIS C AB W/REFL TO HCV RNA, QN, PCR Routine 02/26/2025 1:13 PM EDT Healthcare maintenance HIV 1/2 ANTIGEN/ANTIBODY, FOURTH GENERATION W/RFL Routine 02/26/2025 1:13 PM EDT Healthcare maintenance THINPREP PAP Routine 12/07/2020 2:51 PM EST from Last 3 Months or Most Recently Relevant to Health Maintenance Results * XR Hand 3+ Views Right (08/27/2025 8:15 AM EDT) Anatomical Region Laterality Modality Upper Extremities, Hand Right [facility] 08/27/2025 8:15 AM EDT Narrative 08/27/2025 8:39 AM EDT [place] [address] XRay Report Signed Patient: Ana Bundy MR#: [id number] 7 : 2000 Acct:[id number] Age/Sex: 24 / F ADM Date: 08/27/25 Loc: HO.ED Attending Dr: Ordering Physician: Liam Murray MD Date of Service: 08/27/25 Procedure(s): XR hand RT min 3V Accession Number(s): [id number] cc: Laurent Segura MD; Liam Murray MD Reason for Exam: r/o FB rt hand/rt middle finger EXAMINATION: XR HAND 3 OR MORE VIEWS RIGHT HISTORY: r/o FB rt hand/rt middle finger COMPARISON: There are no prior studies available for comparison. FINDINGS: Three views of the right hand are submitted. Osseous mineralization is normal. There is no fracture or dislocation. The joint spaces are preserved. The soft tissues are unremarkable. No radiopaque foreign body is identified. XR/XR hand RT min 3V IMPRESSION: Unremarkable examination of the right hand. No radiopaque foreign body is identified. Electronically signed by: Kirby Miles MD 08/27/2025 08:37 AM EDT RP Dictated By: Kirby Miles MD Signed By: <Electronically signed by Kirby Miles MD in OV> 08/27/25 0837 DD/ 4 TD/TT: 08/27/25819 Timber Grader: Procedure Note Donotuseinterpreter, Image - 08/27/2025 [place] [address] XRay Report Signed Patient: Aminah Bundy#: [id number] 7 : 2000Acct:[id number] Age/Sex: Date: 08/27/25 Loc: HO.ED Attending Dr: Ordering Physician: Liam Murray MD Date of Service: 08/27/25 Procedure(s): XR hand RT min 3V Accession Number(s): [id number] cc: Name,Laurent DUPREE; Liam Murray MD Reason for Exam: r/o FB rt hand/rt middle finger EXAMINATION: XR HAND 3 OR MORE VIEWS RIGHT HISTORY: r/o FB rt hand/rt middle finger COMPARISON: There are no prior studies available for comparison. FINDINGS: Three views of the right hand are submitted. Osseous mineralization is normal. There is no fracture or dislocation. The joint spaces are preserved. The soft tissues are unremarkable. No radiopaque foreign body is identified. XR/XR hand RT min 3V IMPRESSION: Unremarkable examination of the right hand. No radiopaque foreign body is identified. Electronically signed by: Kirby Miles MD 08/27/2025 08:37 AM EDT RP Dictated By: Kirby Miles MD Signed By: <Electronically signed by Kirby Miles MD in OV> 08/27/25 0837 DD/ TD/TT: 08/27/25819 Timber Grader: [facility] External Provider IMG XR PROCEDURES Final Result * XR Fingers 2+ Views Left (07/20/2025 7:31 PM EDT) Anatomical Region Laterality Modality Upper Extremities, Fingers Left Radio graphic Imaging 07/20/2025 7:31 PM EDT Narrative 07/20/2025 7:32 PM EDT [address] [address] XRay Report Signed Patient: Ana Bundy MR#: [id number] 7 : 2000 Acct:[id number] Age/Sex: 24 / F ADM Date: 07/20/25 Loc: HO.ED Attending Dr: Ordering Physician: Jaclyn Chandler Date of Service: 07/20/25 Procedure(s): XR finger LT min 2V Accession Number(s): [id number] cc: Name,Laurent DUPREE; Jaclyn Chandler CLINICAL HISTORY: [...] in OV> 07/20/251930 DD/ 30 TD/TT: 07/20/251930 Timber Grader: Procedure Note Donotuseinterpreter, Image - 07/20/[address] [address] XRay Report Signed Patient: Wilian BundyR#: [id number] 7 : 2000Acct:[id number] Age/Sex: 24 / FADM Date: 07/20/25 Loc: HO.ED Attending Dr: Ordering Physician: Jaclyn Chandler Date of Service: 07/20/25 Procedure(s): XR finger LT min 2V Accession Number(s): [id number] cc: Name,Laurent DUPREE; Jaclyn Chandler CLINICAL HISTORY: [...] in OV> 07/20/251930 DD/ 30 TD/TT: 07/20/251930 Timber Grader: [facility] External Provider IMG XR PROCEDURES Final Result * Hepatitis C Antibody with Reflex to HCV, RNA, Quantitative, Real-Time PCR (02/26/2025 1:13 PM EDT) Hepatitis C Antibody Nonreactive Nonreactive [facility] Comment:Antibodies to HCV no t detected; does not exclude early acuteHCV infection. Blood Venous blood specimen / Unknown 02/26/2025 1:13 PM EDT 02/26/2025 4:27 PM EDT Lara Bourne [facility] BLOOD ORDERABLES Final Res ult [facility] [address] [place] [phone] * HIV-1/2 Antigen and Antibodies, Fourth Generation, with Reflexes (02/26/2025 1:13 PM EDT) HIV AB/AG Nonreactive Nonreactive [facility] Comment:HIV-1 p24 Ag and/or HIV-1/HIV-2 Ab not detected.A test result that is nonreactive does not exclude thepossibility of exposure to or infection with HIV-1 and/orHIV-2. Nonreactive results in this assay for individualswith prior exposure to HIV-1 and/or HIV-2 may be due toantigen and antibody levels that are below the limit ofdetection of this assay.The [employer] HIV Ag/Ab Combo assay result andsupplemental assay results should be interpreted inconjunction with the patient's clinical presentation,history and other laboratory results. If the results areinconsistent with clinical evidence, additional testing issuggested to confirm the result. Blood Venous blood specimen / Unknown 02/26/2025 1:13 PM EDT 02/26/2025 4:27 PM EDT us Lara Bourne HEAD COUNSELOR LAB BLOOD ORDERABLES Final Res ult [facility] [address] [place] [phone] * THINPREP PAP (12/07/2020 2:51 PM EST) Clinical Information: None given [facility] COMMENT SEE COMMENT [facility]OUNDAT[facility] ON [...] along with historic and current clinical information. Associate Manager Affiliate Marketing : SEE COMMENT [facility] Comment: KF, CT(ASCP) CT screening location: [place] [address] Interpretation/R esult: Negative for intraepithelial lesion or malignancy. [facility] LMP: NONE GIVEN [facility] N LAB SYSTEM Prev. BX: NONE GIVEN [facility] Prev. PAP: NONE GIVEN [facility]OUNDAT[facility] ON LAB SYSTEM Review Associate Manager Affiliate Marketing : SEE COMMENT [facility] Comment: BLC,CT(ASCP) CT screening location: [place] [address] SOURCE: None given [facility] Statement Of Adequacy: SEE COMMENT [facility] Comment: Satisfactory for evaluation. Endocervical/transformation zone component present. Age and/or menstrual status not provided 12/07/2020 2:51 PM EST us Radha Riefrain [facility] ORDERABLES Final Result [facility] [address] from Last 3 Months or Most Recently Relevant to Health [place] [address] [address] [address] [place] Care Teams Urologist Physician Relationship Specialty Start Date End Date Name, MD Laurent [address] [place] [address] [place] [address] PCP - General Family Medicine 10/28/18
--- OUTSIDE RECORDS SUMMARY | 2025-09-23 18:57 | XMS_ITS | Encounter Summary ---
Author Organization [employer] Address [address] 7t [place] [address] Care Team Providers Care Video Photographer Name Role Phone Name, Laurent DUPREE Primary Care Provider Encounter Details Date Type Department Care Team ([facility] st Contact Info) Description 09/22/2025 Telephone [facility] [address] [place], [place] [phone] Faina Cesar MA Social History Tobacco Use Types Packs/Day Years [...] encounter Miscellaneous Notes * Telephone Encounter - Faina Cesar MA - 09/22/2025 11:38 AM EDT Chart Prep Labs: done Images: done Referrals: [facility] Vaccines due: Covid and Flu Screenings: not applicable Overdue care gaps: SBIRT and SDOH documented in this encounter Plan of Treatment Upcoming Encounters Date Type Department Care Team (Late st Contact Info) Description 12/24/2025 10:00 AM EST Office Visit [facility] [address] [place] [address] Name, MD Laurent [address] [place] [address] documented as of this encounter Visit Diagnoses Not on filedocumented in this encounter Additional Health Concerns Assessment Noted Time PHQ-9 Depression Total Score: 0 02/27/20 25 12:27 PM EDT documented as of this encounter Care Teams Video Photographer Relationship Specialty Start Date End Date NameLaurent MD [address] [place] [address] PCP - General Family Medicine 10/28/18 documented as of this encounter
--- OUTSIDE RECORDS SUMMARY | 2025-09-23 18:57 | XMS_ITS | Clinical Summary ---
Author Organization [facility] it[facility] Address [address] [place] [address] Care Team Providers Care Asw/Asuw Tactical Air Controller Name Role Phone Unavailable Primary Care Provider Unavailabl e Social History Tobacco Use Types Packs/Day Years Used Date Smoking Tobacco: Never Assessed Comments Unknown Sex and Gender Information Value Date Recorded Sex Assigned at Not on file Legal Sex Female 12:37 PM EST Gender Identity Not on file Sexual Orientation Not on file Plan of Treatment Health Maintenance Due Date Last Done Comments DTaP,Tdap,and Td Vaccines (1 - Tdap) 2017 Hepatitis B Vaccines (1 of 3 - 19+ 3-dose series) 2017 Cervical Cancer Screening: P ap Smear 2019 HIV Screening 12/31/2023 Hepatitis C Screening 12/31/2023 Social Influencers of Health Screening 12/31/2023 Depression Screening 12/02/2024 COVID-19 Vaccine ( - 2023-2 5 season) 2025 Influenza Vaccine (#1) 2025 HPV Vaccines (1 - 3-dose SCD M series) 2025 RSV Immunization Adult Patie nts (1 - 1-dose 75+ series) 2073 HIB [...]
--- OUTSIDE RECORDS SUMMARY | 2025-09-23 18:57 | XMS_ITS | Encounter Summary ---
Author Organization [employer] Address [address] [facility] [facility] [address] 7[address] [place] [address] Care Team Providers Care Office Machinery Or Equipment Installer Name Role Phone Name, Laurent DUPREE Primary Care Provider [phone] Encounter Details Date Type Department Care Team ([facility] st Contact Info) Description 02/26/2025 Telephone [facility] [address] [place], [place] [phone] Name, MD Laurent [address] [place] [address] Social History Tobacco Use Types Packs/Day Years [...] PM EDT Estefani Kern [place], [place] * Poor appetite or [...] they were not notified about it. The sba underwriter attempted to resolve the issue by offering r/s, but the patient declined. During the conversation, the patient expressed frustration, stating that their health needs have not been adequately addressed. Contact pt at [phone] documented in this encounter Plan of Treatment Upcoming Encounters Date Type Department Care Team (Late st Contact Info) Description 12/24/2025 10:00 AM EST Office Visit [facility] [address] [place] [address] Name, MD Laurent [address] [place] [address] documented as of this encounter Visit Diagnoses Not on filedocumented in this encounter Additional Health Concerns Assessment Noted Time PHQ-9 Depression Total Score: 0 02/27/20 25 12:27 PM EDT documented as of this encounter Care Teams Office Machinery Or Equipment Installer Relationship Specialty Start Date End Date Name, MD Laurent [address] [place] [address] PCP - General Family Medicine 10/28/18 documented as of this encounter
--- OUTSIDE RECORDS SUMMARY | 2025-09-23 18:57 | XMS_ITS | Encounter Summary ---
Author Organization [employer] Address [address] [facility] 7t [place] [address] Care Team Providers Care Glaciologist Name Role Phone Name, Laurent DUPREE Primary Care Provider [phone] Reason for Visit * Reason Comments Med Refill Encounter Details Date Type Department Care Team ([facility] st Contact Info) Description 06/10/2025 Refill [facility] [address] [place] [address] Lara Bourne FNP [address] [place] [address] Social History Tobacco Use Types Packs/Day Years [...] as of this encounter Plan of Treatment Upcoming Encounters Date Type Department Care Team (Late st Contact Info) Description 12/24/2025 10:00 AM EST Office Visit [facility] [address] [place] [phone] Name, MD Laurent [address] [place] [address] documented as of this encounter Visit Diagnoses Not on filedocumented in this encounter Additional Health Concerns Assessment Noted Time PHQ-9 Depression Total Score: 0 02/27/20 25 12:27 PM EDT documented as of this encounter Care Teams Glaciologist Relationship Specialty Start Date End Date NameLaurent MD [address] [place] [address] PCP - General Family Medicine 10/28/18 documented as of this encounter
--- OUTSIDE RECORDS SUMMARY | 2025-09-23 18:57 | XMS_ITS | Clinical Summary ---
Author Organization [facility] Address [address] [facility] [address] [place] [address] Phone Care Team Providers Care Library Circulation Technician Name Role Phone Pcp, Unknown Primary Care [...] Date Last Done Comments DEPRESSION SCREENING 2010 HEPATITIS C SCREENING 2016 HIV ONE-TIME SCREENING [...] topic Medical Devices Not on file Insurance [facility] [employer] C3 ACO C3 ACO C[address] [place] [address] [place] [address] C3 ACO [facility] C3 ACO [facility] C3 ACO Care Teams Library Circulation Technician Relationship Specialty Start Date End Date Pcp, Unknown PCP - General 01/25/25 Additional Source Comments The information contained in this document represents components of the legal health record. It is not the complete legal health record.[facility]
--- OUTSIDE RECORDS SUMMARY | 2025-09-23 18:57 | XMS_ITS | Encounter Summary ---
Author Organization [employer] Address [address] [place] [address] 7 [place] [address] Care Team Providers Care Construction Equipment Technician Name Role Phone Name, Laurent DUPREE Primary Care Provider Reason for Visit * Reason Onset Date Comments triage 04/26/2023 Encounter Details Date Type Department Care Team (Late st Contact Info) Description 04/26/2023 Telephone [facility] [address] [place] [address] Name, MD Laurent [address] [place] [address] triage Social History Tobacco Use Types Packs/Day [...] Description 12/24/2025 10:00 AM EST Office Visit [facility] [address] [place] [address] Name, [place] [address] documented as of this encounter Visit Diagnoses Not on filedocumented in this encounter Care Teams Construction Equipment Technician Relationship Specialty Start Date End Date Name, MD Laurent [address] [place] [address] PCP - General Family Medicine 10/28/18 documented as of this encounter
--- OUTSIDE RECORDS SUMMARY | 2025-09-23 18:57 | XMS_ITS | Encounter Summary ---
Author Organization [employer] Address [address] [facility] 7t [place] [address] Care Team Providers Care Refund Specialist Name Role Phone Name, Laurent DUPREE Primary Care Provider [phone] Encounter Details Date Type Department Care Team (Latest Contact Info) Description 09/23/2025 Travel Social History Tobacco Use Types Packs/Day Years [...] is your housing situation today? I have raulcaitlyn steward 09/23/[address] you [...] 10:00 AM EST Office Visit [facility] [address] [place] [address] Name, MD Laurent [address] [place] [address] documented as of this encounter Visit Diagnoses Not on filedocumented in this encounter Additional Health Concerns Assessment Noted Time PHQ-9 Depression Total Score: 0 02/27/20 25 12:27 PM EDT documented as of this encounter Care Teams Refund Specialist Relationship Specialty Start Date End Date NameLaurent MD [address] [place] [address] PCP - General Family Medicine 10/28/18 documented as of this encounter
[2025-09-24 04:05] LABS: Syphilis Screen Nonreactive (Nonreactive)
[2025-09-24 04:43] LABS: HIV Num 1 0.08 S/CO (0.00-0.99)
[2025-09-27 17:53] LABS: C. trachomatis RNA TMA NOT DETECTED (NOT DETECTED); N. gonorrhoeae RNA TMA NOT DETECTED (NOT DETECTED)
[2025-09-27 20:43] LABS: Trichomonas (NAAT) NOT DETECTED (NOT DETECTED)
== END 2025-09-23 15:04 | disposition home or self-care (01) ==
LOC: HO.HHCL 15:03
PROVIDERS: PCP Internal Medicine Geriatric Medicine; Visit Provider Advanced Practice Midwife
DX: Z01.84 Encounter for antibody response examination (principal); Z11.4 Encounter for screening for human immunodeficiency virus [HIV]; Z12.4 Encounter for screening for malignant neoplasm of cervix; Z20.2 Contact with and (suspected) exposure to infections with a predominantly sexual mode of transmission
CPT/HCPCS: 36415; 86780; 87389; 87491; 87591; 87661; 88175